=== PATIENT | male | born 1950 | race Hispanic/Latino ===

== ENCOUNTER 2017-03-15 01:49 | Inpatient (IN) | payer BC, MEDICARE ==
[2017-03-15 02:00] VITALS: BMI 22.8
[2017-03-15] MEDS ORDERED: Sodium Chloride 0.9% 1,000 ML IV STA ×2 (02:07→03:56)
--- NOTE | 2017-03-15 02:25 | ED PDOC ---
HPI: General Adult Time Seen by Provider: 03/15/17 01:59 Chief Complaint (Nursing): Flu-like Symptoms Chief Complaint (Provider): weakness History Per: Patient Onset/Duration Of Symptoms: Days (1) Current Symptoms Are (Timing): Still Present Additional History Per: Patient Additional Complaint(s): 66 y/o male with history HTN, DM, Osteoporosis, BPH, Spinal Compression Fracture, TURP, and Cholecystectomy, presenting after he states he became weak over the last day also describes a sense of fatigue. Complains that he felt unbalanced when ambulating to the bathroom this evening. Denies associated vomiting, diarrhea, cough, shortness of breath. States that he wasn' t aware of fever, however he has fever on arrival to the ED. Patient had TURP two weeks ago, and two months prior had cholecystectomy. Past Medical History Vital Signs: Last Vital Signs Temp 98.2 F 03/15/17 20:04 Pulse 79 03/15/17 20:04 Resp 18 03/15/17 20:04 BP 99/61 L 03/15/17 20:04 Pulse Ox 96 03/15/17 20:04 - Medical History PMH: Benign Prostatic Hyperplasia, Diabetes, HTN, Osteoporosis Other PMH: Spinal compression fracture - Surgical History Surgical History: Cholecystectomy (12/2016) Other surgeries: TURP - 02/2017 - Family History Family History: States: Unknown Family Hx - Social History Current smoker - smoking cessation education provided: No Ex-Smoker (has not smoked in the last 12 months): No Alcohol: None Drugs: Denies - Home Medications Home Medications: Ambulatory Orders Medication Instructions Recorded Calcitonin,[place],Synthetic 200 unit CELINA DAILY 03/15/17 [Miacalcin] Finasteride [Proscar] 5 mg PO DAILY 03/15/17 Losartan Potassium [Cozaar] 100 mg PO DAILY 03/15/17 Metformin HCl [Fortamet] 1,000 mg PO BID 03/15/17 Metoprolol Succinate 50 mg PO DAILY 03/15/17 Pantoprazole Sodium [Protonix] 40 mg PO DAILY 03/15/17 SITagliptin [Januvia] 100 mg PO DAILY 03/15/17 amLODIPine [Norvasc] 10 mg PO DAILY 03/15/17 - Allergies Allergies/Adverse Reactions: Allergies Allergy/AdvReac Type Severity Reaction Status Date / Time No Known Allergies Allergy Verified 03/15/17 01:59 Review of Systems ROS Statement: Except As Marked, All Systems Reviewed And Found Negative Constitutional: Positive for: Weakness Physical Exam - Reviewed Nursing Documentation Reviewed: Yes Vital Signs Reviewed: Yes - Physical Exam Appears: Positive for: Well, Non-toxic, No Acute Distress Head Exam: Positive for: ATRAUMATIC, NORMAL INSPECTION, NORMOCEPHALIC Skin: Positive for: Normal Color, Warm, DRY Eye Exam: Positive for: EOMI, Normal appearance, PERRL ENT: Positive for: Other (dry mucus membranes). Negative for: Normal ENT Inspection Neck: Positive for: Normal, Painless ROM Cardiovascular/Chest: Positive for: Tachycardia. Negative for: Regular Rate, Rhythm Respiratory: Positive for: CNT, Normal Breath Sounds Gastrointestinal/Abdominal: Positive for: Normal Exam, Bowel Sounds, Soft Back: Positive for: Normal Inspection Extremity: Positive for: Normal ROM Neurologic/Psych: Positive for: Alert, Oriented, Other (resting tremor (chronic) ) - Laboratory Results Result Diagrams: 03/15/17 02:57 03/15/17 02:57 - ECG ECG: Positive for: Interpreted By Me, Viewed By Ri ECG Rhythm: Positive for: Normal QRS, Sinus Tachycardia (107), Nonspecific Changes. Negative for: Normal ST Segment Interpretation Of Abn EK:55: Nonspecific ST abnormalities. Sinus tachycardia 107. O2 Sat by Pulse Oximetry: 95 (RA) Pulse Ox Interpretation: Normal - Radiology X-Ray: Interpreted by Me, Viewed By Ri X-Ray Interpretation: No Acute Disease Medical Decision Making Medical Decision Making: Impression: 66 y/o male with fever, and weakness in the setting of recent TURP. Patient is febrile (100.9F) and tachycardic. Plan: - Labs - CXR - Tylenol for fever - EKG WBC 19,000. LA 1.9. UA is positive. Patient given Rocephin and meets sepsis criteria. 04:19: Spoke with Dr. Tinsley, Hospitalist, who accepted admission. Scribe Attestation: Documented by Haylie Johnson, acting as a scribe for David Prajapati MD Provider Scribe Attestation: All medical record entries made by the Scribe were at my direction and personally dictated by me. I have reviewed the chart and agree that the record accurately reflects my personal performance of the history, physical exam, medical decision making, and the department course for this patient. I have also personally directed, reviewed, and agree with the discharge instructions and disposition. Disposition - Clinical Impression Clinical Impression: Sepsis, UTI (urinary tract infection) - Patient ED Disposition Is Patient to be Admitted: Yes Doctor Will See Patient In The: Hospital Counseled Patient/Family Regarding: Studies Performed, Diagnosis - Disposition Disposition Time: 04:22 Condition: FAIR - Pt Status Changed To: Hospital Disposition Of: Inpatient - Admit Certification Admit to Inpatient:: After my assessment, the patient will require hospitalization for at least two midnights. This is because of the severity of symptoms shown, intensity of services needed, and/or the medical risk in this patient being treated as an outpatient.
[2017-03-15 03:12] LABS: BASO # 0.1 K/uL (0.0-0.2); BASO % 0.4 % (0.0-2.0); EOS % 0.1 % (0.0-4.0); HEMATOCRIT 34.2 % (35.0-51.0); LYMPH # 0.8 K/uL (1.0-4.3); LYMPH % 4.2 % (20.0-40.0); MEAN CELL VOLUME 82.3 fl (80.0-94.0); MEAN CORPUSCULAR HEMOGLOBIN 27.1 pg (27.0-31.0); MEAN CORPUSCULAR HGB CONC 32.9 g/dL (33.0-37.0); MEAN PLATELET VOLUME 7.9 fl (7.2-11.7); MONO % 5.3 % (0.0-10.0); NEUT # 17.5 K/uL (1.8-7.0); PLATELET COUNT 227 K/uL (130-400); RED CELL DISTRIBUTION WIDTH 17.5 % (11.5-14.5); WHITE BLOOD COUNT 19.5 K/uL (4.8-10.8)
[2017-03-15 03:14] LABS: ALB/GLOB RATIO 1.3 (1.0-2.1); ALKALINE PHOSPHATASE 70 U/L (38-126); ALT/SGPT 31 U/L (21-72); AST/SGOT 13 U/L (17-59); BILIRUBIN,TOTAL 0.3 mg/dl (0.2-1.3); BLOOD UREA NITROGEN 19 mg/dl (9-20); CARBON DIOXIDE 19 mmol/L (22-30); CHLORIDE 106 mmol/L (98-107); GFR AFRICAN-AMERICAN > 60; GLUCOSE,RANDOM 230 mg/dL (75-110); POTASSIUM 4.2 MMOL/L (3.6-5.0); SODIUM 143 mmol/l (132-148); TOTAL PROTEIN 6.9 G/DL (6.3-8.2)
[2017-03-15 04:25] LABS: RBC URINE 320 /hpf (0-3); URINE BACTERIA RARE (<OCC); URINE BILIRUBIN NEGATIVE (NEGATIVE); URINE BLOOD LARGE (NEGATIVE); URINE COLOR YELLOW (YELLOW); URINE GLUCOSE (UA) NEG (Normal); URINE KETONE TRACE mg/dL (NEGATIVE); URINE LEUKOCYTE ESTERASE LARGE Leu/uL (Negative); URINE PROTEIN 100 mg/dL (NEGATIVE); URINE UROBILINOGEN 0.2-1.0 mg/dL (0.2-1.0); WBC URINE 272 /hpf (0-5)
--- NOTE | 2017-03-15 05:13 | CP.PCM.HP ---
History of Present Illness - History of Present Illness History of Present Illness: Chief complaint: [place] weak History of present illness: This is a 66-year-old male with a past medical history of hypertension, diabetes [id number], osteoporosis, GERD, BPH status post TURP 2 weeks ago, compression fracture, cholecystectomy 2 months ago, presents after approximately one day history of acute onset constant and worsening generalized fatigue and weakness. Patient states he felt unbalanced while ambulate into the bathroom this evening and has been experiencing mild urinary discomfort upon urination, some urgency, but without flank pain, CVA tenderness, denies hematuria, or malodorous urine. He denies any associated nausea, vomiting, constipation, diarrhea, chest pain, dyspnea, or subjective fevers. In the emergency room patient was found to be mildly tachycardic heart rate 125, temperature 100.9, BP 162/92, respiratory rate 16, 95% saturating on room air. Lactic acid was 1.9, WBC 19.5. An urinalysis was positive for both nitrites and leukocyte esterase. Patient was initiated on 2 mg of Rocephin. Blood and urine cultures pending. Review of systems per HPI all other systems reviewed and negative by me next Past medical and surgical history: Hypertension, diabetes, osteoporosis, GERD, BPH status post TURP 2 weeks ago (02/2017), compression fracture, cholecystectomy (12/2016) Family history: Denies Social history: Denies tobacco, alcohol, IV drug use Home medications as below No known drug allergies [facility] Vital signs as documented. Gen: WDWN, cooperative, alert, appears mildly pale HEENT: NCAT, PERRL, EOMI, no erythema, exudates, gross hearing intact, no lesions Neck: Soft, supple, no lymphadenopathy, no JVD Heart: +S1S2, RRR, No MRG Lung: CTAB, No WRR Abd: soft, NT, ND, BSx4, no HSM, no masses, no suprapubic tenderness Back: No CVA tenderness, no rashes appreciated, well aligned spine Ext: warm, well perfused, pedal pulses intact Neuro: AAOx3, Strength equal bilaterally UE/LE Skin: Warm, Dry, no rash Psych: Normal mood, affect with appropriate range Laboratory results Positive for WBC 19.5, lactic acid 1.9, urinalysis positive for nitrites and leukocyte esterase 03/15/17 02:57 03/15/17 02:57 Active medications Rocephin 1 mg IV PB daily Amlodipine 10 mg by mouth daily Finasteride 5 mg by mouth daily Cozaar 100 mg by mouth daily Metformin 1000 mg by mouth twice a day Toprol 50 mg by mouth daily Januvia 100 mg by mouth daily Protonix 40 mg by mouth daily per home meds Calcitonin nasal spray When necessary Zofran Lovenox for DVT prophylaxis Assessment and plan: This is a 66-year-old male with a past medical history of hypertension, diabetes [id number], GERD, osteoporosis, BPH status post TURP 2 weeks ago, compression fracture, cholecystectomy 2 months ago, presents after approximately one day history of acute onset constant and worsening generalized fatigue and weakness. Patient states he felt unbalanced while ambulate into the bathroom this evening and has been experiencing mild urinary discomfort upon urination, some urgency, but without flank pain, CVA tenderness, denies hematuria, or malodorous urine. He denies any associated nausea, vomiting, constipation, diarrhea, chest pain, dyspnea, or subjective fevers. In the emergency room patient was found to be mildly tachycardic heart rate 125, temperature 100.9, BP 162/92, respiratory rate 16, 95% saturating on room air. Lactic acid was 1.9, WBC 19.5. An urinalysis was positive for both nitrites and leukocyte esterase. Patient was initiated on 2 mg of Rocephin. Blood and urine cultures pending. Sepsis secondary to Urinary tract infection On admission patient presented with weakness and some urinary discomfort UA positive for nitrites and leukocyte esterase with WBC 19.5, temperature 100.9 heart rate 125 Blood and urine cultures pending Patient initiated on 2 g Rocephin in ER, continue 1 g IVPB daily Hypertension Continue amlodipine 10 mg by mouth daily, lovastatin 100 mg by mouth daily, Toprol 50 mg by mouth daily [id number] diabetes mellitus Stable Continue Januvia and metformin Accu-Cheks before meals and at bedtime Sliding scale insulin coverage low Heart healthy moderate carbohydrate diet Osteoporosis with compression fractures Continue calcitonin spray nasal GERD Continue Protonix VTE prophylaxis Lovenox Present on Admission - Present on Admission Any Indicators Present on Admission: No Past Patient History - Past Social History Alcohol: None Drugs: Denies - CARDIAC Hx Hypertension: Yes - ENDOCRINE/METABOLIC Hx Diabetes Mellitus Type 2: Yes - MUSCULOSKELETAL/RHEUMATOLOGICAL Hx Osteoporosis: Yes - PSYCHIATRIC Hx Substance Use: No - SURGICAL HISTORY Hx Cholecystectomy: Yes (12/2016) Meds Allergies/Adverse Reactions: Allergies Allergy/AdvReac Type Severity Reaction Status Date / Time No Known Allergies Allergy Verified 03/15/17 01:59 Results - Vital Signs Recent Vital Signs: Last Vital Signs Temp 100.9 F H 03/15/17 01:59 Pulse 125 H 03/15/17 01:59 Resp 16 03/15/17 01:59 BP 162/92 H 03/15/17 01:59 Pulse Ox 95 03/15/17 04:23 - Labs Result Diagrams: 03/15/17 02:57 03/15/17 02:57 Labs: Laboratory Results - last 24 hr 03/15/17 03/15/17 03/15/17 02:57 02:57 02:57 WBC 19.5 H RBC 4.16 L Hgb 11.3 L Hct 34.2 L MCV 82.3 MCH 27.1 MCHC 32.9 L RDW 17.5 H Plt Count 227 MPV 7.9 Neut % (Auto) 90.0 H Lymph % (Auto) 4.2 L [place] % (Auto) 5.3 Eos % (Auto) 0.1 Baso % (Auto) 0.4 Neut # 17.5 H Lymph # 0.8 L [place] # 1.0 H Eos # 0.0 Baso # 0.1 Sodium 143 Potassium 4.2 Chloride 106 Carbon Dioxide 19 L Anion Gap 22 H BUN 19 Creatinine 1.0 Est GFR ( Amer) > 60 Est GFR (Non-Af Amer) > 60 Random Glucose 230 H Lactic Acid 1.9 Calcium 9.0 Total Bilirubin 0.3 AST 13 L ALT 31 Alkaline Phosphatase 70 Total Protein 6.9 Albumin 3.9 Globulin 2.9 Albumin/Globulin Ratio 1.3 Urine Color Urine Clarity Urine pH Ur Specific [place] Urine Protein Urine Glucose (UA) Urine Ketones Urine Blood Urine Nitrate Urine Bilirubin Urine Urobilinogen Ur Leukocyte Esterase Urine RBC (Auto) Urine Microscopic WBC Ur Squamous Epith Cells Urine Bacteria Hyaline Casts Influenza Typ A,B (EIA) 03/15/17 03/15/17 02:57 04:13 WBC RBC Hgb Hct MCV MCH MCHC RDW Plt Count MPV Neut % (Auto) Lymph % (Auto) [place] % (Auto) Eos % (Auto) Baso % (Auto) Neut # Lymph # [place] # Eos # Baso # Sodium Potassium Chloride Carbon Dioxide Anion Gap BUN Creatinine Est GFR ( Amer) Est GFR (Non-Af Amer) Random Glucose Lactic Acid Calcium Total Bilirubin AST ALT Alkaline Phosphatase Total Protein Albumin Globulin Albumin/Globulin Ratio Urine Color Yellow Urine Clarity Cloudy Urine pH 5.0 Ur Specific [place] 1.017 Urine Protein 100 Urine Glucose (UA) Neg Urine Ketones Trace Urine Blood Large Urine Nitrate Positive H Urine Bilirubin Negative Urine Urobilinogen 0.2-1.0 Ur Leukocyte Esterase Large Urine RBC (Auto) 320 H Urine Microscopic WBC 272 H Ur Squamous Epith Cells 1 Urine Bacteria Rare Hyaline Casts 0-2 Influenza Typ A,B (EIA) Negative for flu a/b
[2017-03-15 05:19] LABS: NEUTROPHIL 92 % (42-75); TOTAL CELLS COUNTED 100
[2017-03-15] MEDS ORDERED: cefTRIAXone 2 GM in Sodium Chloride 0.9% 100 ML IVPB STA (05:52)
--- NOTE | 2017-03-15 08:23 | CARD ---
APPROVED REPORT EKG Measurement Heart [id number] <Conclusion> Sinus tachycardia Cannot rule out Anterior infarct, age undetermined Abnormal ECG
--- NOTE | 2017-03-15 08:51 | RAD ---
HISTORY: fever/weakness COMPARISON: No prior. FINDINGS: LUNGS: No active pulmonary disease. PLEURA: No significant pleural effusion identified, no pneumothorax apparent. CARDIOVASCULAR: Normal. OSSEOUS STRUCTURES: No significant abnormalities. VISUALIZED UPPER ABDOMEN: Normal. OTHER FINDINGS: None. IMPRESSION: No acute cardiopulmonary disease appreciated.
[2017-03-15] MEDS ORDERED: cefTRIAXone 2 GM in Sodium Chloride 0.9% 100 ML IVPB SCH (09:00)
[2017-03-15] MEDS ORDERED: METFORMIN HCL 1000 MG PO SCH (09:00)
[2017-03-15] MEDS ORDERED: CALCITONIN SALMON SYNTHETIC NAS SCH (09:00)
[2017-03-15] MEDS: Enoxaparin 40 mg Syringe SC SCH ×2 (09:55→09:59)
[2017-03-15] MEDS: Metoprolol Succinate 50 mg XL Tab PO SCH (10:00)
[2017-03-15] MEDS: Pantoprazole 40 mg EC Tab PO SCH (10:00)
[2017-03-15] MEDS: Sodium Chloride 0.9% 1,000 ML IV SCH ×2 (10:55→20:30)
[2017-03-15] MEDS: Calcitonin 200 Int Units/Inh Nasal Spray (3.7 ml) NAS SCH (16:20)
[2017-03-16 05:46] LABS: BASO % 0.3 % (0.0-2.0); EOS # 0.1 K/uL (0.0-0.7); EOS % 0.5 % (0.0-4.0); HEMATOCRIT 30.9 % (35.0-51.0); LYMPH # 2.5 K/uL (1.0-4.3); LYMPH % 17.1 % (20.0-40.0); MEAN CELL VOLUME 82.8 fl (80.0-94.0); MEAN CORPUSCULAR HEMOGLOBIN 27.4 pg (27.0-31.0); MEAN PLATELET VOLUME 8.1 fl (7.2-11.7); MONO # 1.4 K/uL (0.0-0.8); NEUT # 10.4 K/uL (1.8-7.0); NEUT % 72.1 % (50.0-75.0); RED CELL DISTRIBUTION WIDTH 17.5 % (11.5-14.5); WHITE BLOOD COUNT 14.4 K/uL (4.8-10.8)
[2017-03-16 06:19] LABS: BLOOD UREA NITROGEN 14 mg/dl (9-20); CHLORIDE 108 mmol/L (98-107); GFR AFRICAN-AMERICAN > 60; GLUCOSE,RANDOM 123 mg/dL (75-110); POTASSIUM 3.8 MMOL/L (3.6-5.0); SODIUM 143 mmol/l (132-148)
[2017-03-16 06:20] LABS: CALCIUM 8.8 mg/dL (8.4-10.2); CARBON DIOXIDE 24 mmol/L (22-30)
[2017-03-16] MEDS: Sodium Chloride 0.9% 1,000 ML IV SCH ×2 (06:47→22:05)
--- NOTE | 2017-03-16 07:40 | CP.PCM.PN ---
Subjective - Date & Time of Evaluation Date of Evaluation: 03/16/17 Time of Evaluation: 09:30 - Subjective Subjective: Patient seen and examined bedside. Lying in bed in NAD .Febrile Tmax 102 last 24 hours Bp 120/69 HR 79 Appears pale,weak, tired. complains of some pain to lower abdomen , suprapubic area. Able to urinate with no residual No acute issues overnight urine cx postive for gram negative karson Objective - Vital Signs/Intake and Output Vital Signs (last 24 hours): Temp Pulse Resp BP Pulse Ox 97.6 F 79 18 120/69 96 03/16/17 00:12 03/16/17 00:12 03/16/17 00:12 03/16/17 00:12 03/16/17 00:12 Intake and Output: 03/16/17 03/16/17 06:59 18:59 Output Total 150 Balance -150 - Medications Medications: Current Medications Acetaminophen (Tylenol 325mg Tab) 650 mg PO Q6 PRN PRN Reason: Fever >100.4 F Acetaminophen (Tylenol 325mg Tab) 650 mg PO Q4H PRN PRN Reason: Pain, Mild (1-3) Last Admin: 03/16/17 07:00 Dose: 650 mg Amlodipine Besylate (Norvasc) 10 mg PO DAILY [facility] Last Admin: 03/15/17 10:02 Dose: 10 mg Calcitonin [place] (Miacalcin) 200 iu CELINA DAILY [facility] Last Admin: 03/15/17 16:20 Dose: 1 spray Enoxaparin Sodium (Lovenox) 40 mg SC DAILY [facility] PRN Reason: Protocol Last Admin: 03/15/17 09:55 Dose: Not Given Finasteride (Proscar) 5 mg PO DAILY [facility] Last Admin: 03/15/17 10:00 Dose: 5 mg Ceftriaxone Sodium 1 gm/ (Sodium Chloride) 100 mls @ 100 mls/hr IVPB DAILY [facility] PRN Reason: Protocol Last Admin: 03/15/17 10:02 Dose: 100 mls/hr Sodium Chloride (Sodium Chloride 0.9%) 1,000 mls @ 100 mls/hr IV .Q10H [facility] Stop: 03/16/17 10:43 Last Admin: 03/16/17 06:47 Dose: 100 mls/hr Ibuprofen (Motrin Tab) 400 mg PO Q6 PRN PRN Reason: Fever >100.4 F Losartan Potassium (Cozaar) 100 mg PO DAILY [facility] Last Admin: 03/15/17 10:01 Dose: 100 mg Metformin HCl (Glucophage) 1,000 mg PO BID [facility] Last Admin: 03/15/17 16:19 Dose: 1,000 mg Metoprolol Succinate (Toprol Xl) 50 mg PO DAILY [facility] Last Admin: 03/15/17 10:00 Dose: 50 mg Ondansetron HCl (Zofran Inj) 4 mg IVP Q6 PRN PRN Reason: Nausea/Vomiting Pantoprazole Sodium (Protonix Ec Tab) 40 mg PO DAILY [facility] Last Admin: 03/15/17 10:00 Dose: 40 mg Sitagliptin Phosphate (Januvia) 100 mg PO DAILY [facility] Last Admin: 03/15/17 10:01 Dose: 100 mg - Labs Labs: 03/16/17 04:20 03/16/17 04:20 - Constitutional Appears: Older Than Stated Age, Cachectic, Chronically Ill, Other (pale) - Head Exam Head Exam: ATRAUMATIC, NORMOCEPHALIC - Eye Exam Eye Exam: EOMI, PERRL Pupil Exam: NORMAL ACCOMODATION - ENT Exam ENT Exam: Mucous Membranes Moist, Normal Exam - Neck Exam Neck Exam: Full ROM, Normal Inspection - Respiratory Exam Respiratory Exam: Clear to Ausculation Bilateral, NORMAL BREATHING PATTERN. absent: Rales, Rhonchi, Wheezes, Respiratory Distress - Cardiovascular Exam Cardiovascular Exam: REGULAR RHYTHM, RRR, +S1, +S2. absent: JVD - GI/Abdominal Exam GI & Abdominal Exam: Soft, Hernia (large inguinal and lower abdominal hernia ), Normal Bowel Sounds. absent: Distended, Guarding, Tenderness, Rebound - Rectal Exam Rectal Exam: Deferred - Exam Exam: Scrotal Swelling Additional comments: hydrocele - Extremities Exam Extremities Exam: Full ROM, Normal Capillary Refill, Normal Inspection. absent : Calf Tenderness, Pedal Edema - Back Exam Back Exam: NORMAL INSPECTION - Neurological Exam Neurological Exam: Alert, Awake, CN II-XII Intact, Oriented x3 - Psychiatric Exam Psychiatric exam: Normal Affect - Skin Skin Exam: Dry, Pallor, Warm Assessment and Plan - Assessment and Plan (Free Text) Assessment: 66-year-old male with a past medical history of hypertension, diabetes non- insulin-dependent, GERD, osteoporosis, BPH status post TURP 2 weeks ago, compression fracture, cholecystectomy 2 months ago, presents after approximately one day history of acute onset constant and worsening generalized fatigue and weakness. Patient states he felt unbalanced while ambulate into the bathroom this evening and has been experiencing mild urinary discomfort upon urination, some urgency, but without flank pain, CVA tenderness, denies hematuria, or malodorous urine. He denies any associated nausea, vomiting, constipation, diarrhea, chest pain, dyspnea, or subjective fevers. In the emergency room patient was found to be mildly tachycardic heart rate 125, temperature 100.9, BP 162/92, respiratory rate 16, 95% saturating on room air. Lactic acid was 1.9, WBC 19.5. An urinalysis was positive for both nitrites and leukocyte esterase. Patient was initiated on 2 mg of Rocephin. Blood and urine cultures pending. 1.Sepsis secondary to Urinary tract infection On admission patient presented with weakness and some urinary discomfort UA positive for nitrites and leukocyte esterase with WBC 19.5, temperature 100.9 heart rate 125 urine culture growing gram negative kasron follow up blood cultures continue rocephin 1 g Iv daily check HIV 2. s/p Recent TURP 3. Hydrocele and inguinal hernia Will order CT abdomen & pelvis urology eval 4.Hypertension controlled Continue amlodipine 10 mg by mouth daily, Toprol 50 mg by mouth daily 5. Mild anemia unclear etiology Monitor for now 6.Wix-yfkeyeq-xmukjehjp diabetes mellitus Stable Continue Januvia Hold metformin for 48 hours since contrast for CT will be given Accu-Cheks before meals and at bedtime Sliding scale insulin coverage low Heart healthy moderate carbohydrate diet 7.Osteoporosis with compression fractures Continue calcitonin spray nasal 8.GERD Continue Protonix VTE prophylaxis Lovenox
[2017-03-16] MEDS: Enoxaparin 40 mg Syringe SC SCH (08:44)
[2017-03-16] MEDS: Calcitonin 200 Int Units/Inh Nasal Spray (3.7 ml) NAS SCH (08:46)
[2017-03-16] MEDS: Pantoprazole 40 mg EC Tab PO SCH (08:47)
[2017-03-16] MEDS: Metoprolol Succinate 50 mg XL Tab PO SCH (08:47)
[2017-03-16] MEDS ORDERED: Iohexol 240 (50 ml) PO ONE (16:40)
[2017-03-16] MEDS ORDERED: Iohexol 300 100 ML IJ ONE (21:21)
[2017-03-16] MEDS ORDERED: Sodium Chloride 0.9% 50 ML IV ONE (21:21)
--- NOTE | 2017-03-16 23:17 | CT ---
EXAM: CT Abdomen and Pelvis With Intravenous Contrast CLINICAL HISTORY: 66 years old, male; Signs and symptoms; Other: Large hydrocele, inguinal hernia; Prior surgery; Surgery date: 1-6 months; Surgery type: Gb removed. Turp procedure, 2weeks ago; Additional info: Large hydrocele and inguinal hernia ? TECHNIQUE: Axial computed tomography images of the abdomen and pelvis with intravenous contrast. All CT scans at this facility use one or more dose reduction techniques, viz.: automated exposure control; ma/kV adjustment per patient size (including targeted exams where dose is matched to indication; i.e. head); or iterative reconstruction technique. Coronal and sagittal reformatted images were created and reviewed. CONTRAST: 90 mL of [id number] administered intravenously. COMPARISON: No relevant prior studies available. FINDINGS: Lower thorax: Left basilar consolidation, best detected on series 6, image 8. Left basilar atelectasis is also noted. ABDOMEN: Liver: No acute findings. Gallbladder and bile ducts: The gallbladder is surgically absent. No significant intra- or extrahepatic biliary ductal dilation. Pancreas: Enhances homogeneously. No ductal dilation. No discrete mass. Spleen: No acute findings. Adrenals: No acute findings. Kidneys and ureters: No acute findings. No hydronephrosis or renal calculi. No discrete solid mass. PELVIS: Bladder: No acute findings. Reproductive: This vesicles are markedly enlarged, as is the prostate gland, demonstrating mass effect on the patient's bladder, shifting it to the right of midline. Punctate foci of air and fluid are identified within the TURP defect (series 601, image 52), to the right of midline. Appendix: The appendix is not definitively visualized, however no pericecal inflammatory change is identified to suggest the presence of acute appendicitis. ABDOMEN and PELVIS: Stomach and bowel: A bowel containing nonobstructing left inguinal hernia is present. Peritoneum: No significant fluid collection. No free air. Lymph nodes: Minimally enlarged lymph nodes are identified within the pelvis. Vasculature: Calcified atherosclerotic disease. Bones: Compression of the vertebral body of L1 is identified, with sclerotic bony change. Compression of the superior endplate of T12 is also noted, along with endplate changes. Vacuum phenomenon is also noted. IMPRESSION: Punctate foci of air within the right base of the bladder, for which clinical correlation is needed. Postoperative change within the enlarged prostate gland. Enlargement of the seminal vesicles. Bowel containing nonobstructing left inguinal hernia. Left basilar consolidation.
[2017-03-17 06:29] LABS: HEMATOCRIT 29.8 % (35.0-51.0); MEAN CELL VOLUME 81.8 fl (80.0-94.0); MEAN CORPUSCULAR HEMOGLOBIN 27.5 pg (27.0-31.0); MEAN CORPUSCULAR HGB CONC 33.6 g/dL (33.0-37.0); RED CELL DISTRIBUTION WIDTH 17.4 % (11.5-14.5); WHITE BLOOD COUNT 8.9 K/uL (4.8-10.8)
[2017-03-17 06:38] LABS: BLOOD UREA NITROGEN 10 mg/dl (9-20); CALCIUM 8.6 mg/dL (8.4-10.2); CARBON DIOXIDE 21 mmol/L (22-30); CHLORIDE 110 mmol/L (98-107); GFR AFRICAN-AMERICAN > 60; GLUCOSE,RANDOM 123 mg/dL (75-110); POTASSIUM 3.3 MMOL/L (3.6-5.0); SODIUM 143 mmol/l (132-148)
--- NOTE | 2017-03-17 07:28 | CP.PCM.PN ---
Subjective - Date & Time of Evaluation Date of Evaluation: 03/17/17 Time of Evaluation: 07:26 - Subjective Subjective: consult in chart inp uti and left inguinal hernia. suggest iv meds till stable then cipro for 10 days once discharged Objective - Vital Signs/Intake and Output Vital Signs (last 24 hours): Temp Pulse Resp BP Pulse Ox 98.4 F 83 19 135/73 95 03/16/17 23:15 03/16/17 23:15 03/16/17 23:15 03/16/17 23:15 03/16/17 23:15 - Medications Medications: Current Medications Acetaminophen (Tylenol 325mg Tab) 650 mg PO Q6 PRN PRN Reason: Fever >100.4 F Acetaminophen (Tylenol 325mg Tab) 650 mg PO Q4H PRN PRN Reason: Pain, Mild (1-3) Last Admin: 03/17/17 02:19 Dose: 650 mg Amlodipine Besylate (Norvasc) 10 mg PO DAILY [facility] Last Admin: 03/16/17 08:46 Dose: 10 mg Calcitonin [place] (Miacalcin) 200 iu CELINA DAILY [facility] Last Admin: 03/16/17 08:46 Dose: 1 spray Enoxaparin Sodium (Lovenox) 40 mg SC DAILY [facility] PRN Reason: Protocol Last Admin: 03/16/17 08:44 Dose: Not Given Finasteride (Proscar) 5 mg PO DAILY [facility] Last Admin: 03/16/17 08:46 Dose: 5 mg Ceftriaxone Sodium 1 gm/ (Sodium Chloride) 100 mls @ 100 mls/hr IVPB DAILY [facility] PRN Reason: Protocol Last Admin: 03/16/17 08:42 Dose: 100 mls/hr Sodium Chloride (Sodium Chloride 0.9%) 1,000 mls @ 100 mls/hr IV .Q10H [facility] Stop: 03/17/17 20:49 Last Admin: 03/16/17 22:05 Dose: 100 mls/hr Ibuprofen (Motrin Tab) 400 mg PO Q6 PRN PRN Reason: Fever >100.4 F Losartan Potassium (Cozaar) 100 mg PO DAILY [facility] Last Admin: 03/16/17 08:43 Dose: 100 mg Metformin HCl (Glucophage) 1,000 mg PO BID [facility] Last Admin: 03/16/17 08:43 Dose: 1,000 mg Metoprolol Succinate (Toprol Xl) 50 mg PO DAILY [facility] Last Admin: 03/16/17 08:47 Dose: 50 mg Ondansetron HCl (Zofran Inj) 4 mg IVP Q6 PRN PRN Reason: Nausea/Vomiting Pantoprazole Sodium (Protonix Ec Tab) 40 mg PO DAILY [facility] Last Admin: 03/16/17 08:47 Dose: 40 mg Sitagliptin Phosphate (Januvia) 100 mg PO DAILY [facility] Last Admin: 03/16/17 08:43 Dose: 100 mg - Labs Labs: 03/17/17 05:45 03/17/17 05:45
[2017-03-17] MEDS ORDERED: Potassium Chloride 20 mEq ER Tab PO ONE (09:00)
[2017-03-17] MEDS: Sodium Chloride 0.9% 1,000 ML IV SCH ×2 (09:28→16:21)
[2017-03-17] MEDS: Enoxaparin 40 mg Syringe SC SCH (09:29)
[2017-03-17] MEDS: Pantoprazole 40 mg EC Tab PO SCH (09:30)
[2017-03-17] MEDS: Metoprolol Succinate 50 mg XL Tab PO SCH (09:31)
[2017-03-17] MEDS: Calcitonin 200 Int Units/Inh Nasal Spray (3.7 ml) NAS SCH (09:34)
[2017-03-17] MEDS: Meropenem 500 MG in Sodium Chloride 0.9% 100 ML IVPB SCH ×2 (12:53→16:14)
--- NOTE | 2017-03-17 13:01 | CON ---
DATE: 03/16/2017 HISTORY OF PRESENT ILLNESS: This is a 66-year-old gentleman, who I was seeing for evaluation of a potential left hydrocele. The patient has a urologic history including recent transurethral resection of the prostate in [facility] approximately 2 weeks ago. The patient postoperatively is voiding well. He denies any significant dysuria; however, when came in to the hospital he had a white blood cell count in his H and H of 19.5. BUN and creatinine were normal at 10 and 0.7. He was mildly hyperglycemic upon admission. Urinalysis showed the presence of significant amount of white blood cells as well as positive nitrites in the urine. Consequently, the patient then was placed on IV antibiotics for coverage for potential urinary tract infection. In reference to the reason for the consult of the left hydrocele, the patient has had this left bulge for years and reasonably well documented that this is a left inguinal hernia. He is getting a CT scan of this area to confirm the presence of the hernia, but this in fact does not feel like a hydrocele at this time and should be addressed more by the general surgeons if the patient wishes. At this time, the patient feels that this bulge is chronic and I am not sure that he is interested at this time for any surgical repair. RECOMMENDATIONS: From the urologic standpoint, I think he should just be controlled with intravenous antibiotics. When the white blood cell count normalizes, at that point he can be converted to an oral antibiotic. If the culture comes back in time to be selective then fine, otherwise I would probably recommend Cipro 500 mg p.o. b.i.d. to be taken for a period of 10 days after again the white blood cell count normalizes. Deonna Keyes MD
--- NOTE | 2017-03-17 13:23 | CP.PCM.PN ---
Subjective - Date & Time of Evaluation Date of Evaluation: 03/17/17 Time of Evaluation: 12:00 - Subjective Subjective: No fever this am, afebrile since 4 pm yesterday leukocytosis resolving feels better no CP no SOB no abd pain weakness better poor appetite had diarrhea this am Objective - Vital Signs/Intake and Output Vital Signs (last 24 hours): Temp Pulse Resp BP Pulse Ox 97.9 F 82 20 145/76 96 03/17/17 08:44 03/17/17 08:44 03/17/17 08:44 03/17/17 08:44 03/17/17 08:44 - Medications Medications: Current Medications Acetaminophen (Tylenol 325mg Tab) 650 mg PO Q6 PRN PRN Reason: Fever >100.4 F Acetaminophen (Tylenol 325mg Tab) 650 mg PO Q4H PRN PRN Reason: Pain, Mild (1-3) Last Admin: 03/17/17 10:38 Dose: 650 mg Amlodipine Besylate (Norvasc) 10 mg PO DAILY [facility] Last Admin: 03/17/17 09:31 Dose: 10 mg Calcitonin [place] (Miacalcin) 200 iu CELINA DAILY [facility] Last Admin: 03/17/17 09:34 Dose: 1 spray Enoxaparin Sodium (Lovenox) 40 mg SC DAILY [facility] PRN Reason: Protocol Last Admin: 03/17/17 09:29 Dose: 40 mg Finasteride (Proscar) 5 mg PO DAILY [facility] Last Admin: 03/17/17 09:31 Dose: 5 mg Sodium Chloride (Sodium Chloride 0.9%) 1,000 mls @ 100 mls/hr IV .Q10H [facility] Stop: 03/17/17 20:49 Last Admin: 03/17/17 09:28 Dose: 100 mls/hr Meropenem 500 mg/ Sodium (Chloride) 100 mls @ 100 mls/hr IVPB Q8 [facility] PRN Reason: Protocol Last Admin: 03/17/17 12:53 Dose: 100 mls/hr Ibuprofen (Motrin Tab) 400 mg PO Q6 PRN PRN Reason: Fever >100.4 F Losartan Potassium (Cozaar) 100 mg PO DAILY [facility] Last Admin: 03/17/17 09:32 Dose: 100 mg Metformin HCl (Glucophage) 1,000 mg PO BID [facility] Last Admin: 03/16/17 08:43 Dose: 1,000 mg Metoprolol Succinate (Toprol Xl) 50 mg PO DAILY [facility] Last Admin: 03/17/17 09:31 Dose: 50 mg Ondansetron HCl (Zofran Inj) 4 mg IVP Q6 PRN PRN Reason: Nausea/Vomiting Pantoprazole Sodium (Protonix Ec Tab) 40 mg PO DAILY [facility] Last Admin: 03/17/17 09:30 Dose: 40 mg Sitagliptin Phosphate (Januvia) 100 mg PO DAILY [facility] Last Admin: 03/17/17 09:31 Dose: 100 mg - Labs Labs: 03/17/17 05:45 03/17/17 05:45 - Constitutional Appears: Non-toxic, No Acute Distress, Chronically Ill - Head Exam Head Exam: NORMAL INSPECTION, NORMOCEPHALIC - Eye Exam Eye Exam: EOMI, Normal appearance, PERRL Pupil Exam: NORMAL ACCOMODATION - ENT Exam ENT Exam: Mucous Membranes Moist, Normal External Ear Exam - Neck Exam Neck Exam: Full ROM. absent: Meningismus - Respiratory Exam Respiratory Exam: NORMAL BREATHING PATTERN. absent: Respiratory Distress - Cardiovascular Exam Cardiovascular Exam: REGULAR RHYTHM, +S1, +S2 - GI/Abdominal Exam GI & Abdominal Exam: Soft, Normal Bowel Sounds. absent: Tenderness - Extremities Exam Extremities Exam: Full ROM, Normal Capillary Refill. absent: Calf Tenderness - Back Exam Back Exam: Full ROM. absent: CVA tenderness (L) - Neurological Exam Neurological Exam: Alert, Awake, CN II-XII Intact, Oriented x3 Neuro motor strength exam: Left Upper Extremity: 5, Right Upper Extremity: 5, Left Lower Extremity: 5, Right Lower Extremity: 5 - Psychiatric Exam Psychiatric exam: Normal Affect, Normal Mood - Skin Skin Exam: Dry, Normal Color, Warm Assessment and Plan - Assessment and Plan (Free Text) Assessment: 66-year-old male with a past medical history of hypertension, diabetes non- insulin-dependent, GERD, osteoporosis, BPH status post TURP 2 weeks ago, compression fracture, cholecystectomy 2 months ago, presents after approximately one day history of acute onset constant and worsening generalized fatigue and weakness. Patient states he felt very weak and has been experiencing mild urinary discomfort upon urination, some urgency, but without flank pain, CVA tenderness, denies hematuria, or malodorous urine. He denies any associated nausea, vomiting, constipation, diarrhea, chest pain, dyspnea, or subjective fevers. In the emergency room patient was found to be mildly tachycardic heart rate 125, temperature 100.9, BP 162/92, respiratory rate 16, 95% saturating on room air. Lactic acid was 1.9, WBC 19.5. A urinalysis was positive for both nitrites and leukocyte esterase. Patient was initiated on 2 mg of Rocephin. Blood and urine cultures showed ESBL Klebsiella and abx was changed to Meropenema 1.Sepsis secondary to Urinary tract infection On admission patient presented with weakness and some urinary discomfort UA positive for nitrites and leukocyte esterase with WBC 19.5, temperature 100.9 heart rate 125 urine culture : ESBL Klebsiella Change Abx to IV Meropenem , would likely need 10 day of IV antibiotics ID consult : DR Andrea 2. s/p Recent TURP 3. Hydrocele and inguinal hernia CT abdomen & pelvis: Inguinal hernia urology eval- discussed case with Dr Keyes : no urologic intervention 4.Hypertension controlled Continue amlodipine 10 mg by mouth daily, Toprol 50 mg by mouth daily 5. Mild anemia unclear etiology Monitor for now 6.Hyu-hwsknon-sxswyqaed diabetes mellitus Stable Continue Januvia Hold metformin for 48 hours since contrast for CT given Accu-Cheks before meals and at bedtime Sliding scale insulin coverage low Heart healthy moderate carbohydrate diet 7.Osteoporosis with compression fractures Continue calcitonin spray nasal 8.GERD Continue Protonix 9. Soft BM this am - check for C diff 10. Hypokalemia likely sec to poor PO intake Replace with KCl VTE prophylaxis Lovenox
[2017-03-17] MEDS: Lactobacillus Acidophilus 500 MU Cap PO SCH (16:11)
--- NOTE | 2017-03-17 16:50 | CP.PCM.PN ---
Subjective - Date & Time of Evaluation Date of Evaluation: 03/17/17 Time of Evaluation: 17:51 - Subjective Subjective: I D NOTE DISCUSSED C PATIENT C ESBL KLEBSIELLA THAT IAS ESSENTIALLY MDR IS SENSITIVE TO CARBAPENEMS AND AMINOGLYCOSIDES(2 CLASSES OF ANTIBIOTICS) AGREE C MEROPENEM Objective - Vital Signs/Intake and Output Vital Signs (last 24 hours): Temp Pulse Resp BP Pulse Ox 98.4 F 68 20 129/74 96 03/17/17 16:44 03/17/17 16:44 03/17/17 16:44 03/17/17 16:44 03/17/17 16:44 - Medications Medications: Current Medications Acetaminophen (Tylenol 325mg Tab) 650 mg PO Q6 PRN PRN Reason: Fever >100.4 F Acetaminophen (Tylenol 325mg Tab) 650 mg PO Q4H PRN PRN Reason: Pain, Mild (1-3) Last Admin: 03/17/17 10:38 Dose: 650 mg Amlodipine Besylate (Norvasc) 10 mg PO DAILY [facility] Last Admin: 03/17/17 09:31 Dose: 10 mg Calcitonin [place] (Miacalcin) 200 iu CELINA DAILY [facility] Last Admin: 03/17/17 09:34 Dose: 1 spray Enoxaparin Sodium (Lovenox) 40 mg SC DAILY [facility] PRN Reason: Protocol Last Admin: 03/17/17 09:29 Dose: 40 mg Finasteride (Proscar) 5 mg PO DAILY [facility] Last Admin: 03/17/17 09:31 Dose: 5 mg Sodium Chloride (Sodium Chloride 0.9%) 1,000 mls @ 100 mls/hr IV .Q10H [facility] Stop: 03/17/17 20:49 Last Admin: 03/17/17 16:21 Dose: 100 mls/hr Meropenem 500 mg/ Sodium (Chloride) 100 mls @ 100 mls/hr IVPB Q8 [facility] PRN Reason: Protocol Last Admin: 03/17/17 16:14 Dose: 100 mls/hr Ibuprofen (Motrin Tab) 400 mg PO Q6 PRN PRN Reason: Fever >100.4 F Lactobacillus Acidophilus (Bacid Acidophilus) 1 cap PO BID [facility] Last Admin: 03/17/17 16:11 Dose: 1 cap Losartan Potassium (Cozaar) 100 mg PO DAILY [facility] Last Admin: 03/17/17 09:32 Dose: 100 mg Metformin HCl (Glucophage) 1,000 mg PO BID [facility] Last Admin: 03/16/17 08:43 Dose: 1,000 mg Metoprolol Succinate (Toprol Xl) 50 mg PO DAILY [facility] Last Admin: 03/17/17 09:31 Dose: 50 mg Ondansetron HCl (Zofran Inj) 4 mg IVP Q6 PRN PRN Reason: Nausea/Vomiting Pantoprazole Sodium (Protonix Ec Tab) 40 mg PO DAILY [facility] Last Admin: 03/17/17 09:30 Dose: 40 mg Sitagliptin Phosphate (Januvia) 100 mg PO DAILY [facility] Last Admin: 03/17/17 09:31 Dose: 100 mg - Labs Labs: 03/17/17 05:45 03/17/17 05:45
[2017-03-18] MEDS: Meropenem 500 MG in Sodium Chloride 0.9% 100 ML IVPB SCH ×3 (00:45→16:06)
[2017-03-18] MEDS: Sodium Chloride 0.9% 1,000 ML IV SCH ×2 (04:53→22:01)
[2017-03-18 06:23] LABS: HEMATOCRIT 32.2 % (35.0-51.0); MEAN CELL VOLUME 82.7 fl (80.0-94.0); MEAN CORPUSCULAR HEMOGLOBIN 26.8 pg (27.0-31.0); MEAN CORPUSCULAR HGB CONC 32.4 g/dL (33.0-37.0); RED CELL DISTRIBUTION WIDTH 17.9 % (11.5-14.5); WHITE BLOOD COUNT 8.5 K/uL (4.8-10.8)
[2017-03-18 06:41] LABS: BLOOD UREA NITROGEN 10 mg/dl (9-20); CALCIUM 8.6 mg/dL (8.4-10.2); CARBON DIOXIDE 24 mmol/L (22-30); CHLORIDE 110 mmol/L (98-107); GFR AFRICAN-AMERICAN > 60; GLUCOSE,RANDOM 129 mg/dL (75-110); POTASSIUM 3.8 MMOL/L (3.6-5.0); SODIUM 145 mmol/l (132-148)
[2017-03-18] MEDS: Lactobacillus Acidophilus 500 MU Cap PO SCH ×2 (08:34→16:06)
[2017-03-18] MEDS: Pantoprazole 40 mg EC Tab PO SCH (08:35)
[2017-03-18] MEDS: Enoxaparin 40 mg Syringe SC SCH (08:35)
[2017-03-18] MEDS: Metoprolol Succinate 50 mg XL Tab PO SCH (08:35)
[2017-03-18] MEDS: Calcitonin 200 Int Units/Inh Nasal Spray (3.7 ml) NAS SCH (08:36)
--- NOTE | 2017-03-18 11:43 | CP.PCM.PN ---
Subjective - Date & Time of Evaluation Date of Evaluation: 03/18/17 Time of Evaluation: 10:30 - Subjective Subjective: No fever feels weak but better Stool C diff came back + denies CP no SOB no abd pain no pain on his hernia diarrhea better Objective - Vital Signs/Intake and Output Vital Signs (last 24 hours): Temp Pulse Resp BP Pulse Ox 98.6 F 89 20 142/78 97 03/18/17 08:15 03/18/17 08:35 03/18/17 08:15 03/18/17 08:35 03/18/17 08:15 Intake and Output: 03/18/17 03/18/17 06:59 18:59 Intake Total 1540 Balance 1540 - Medications Medications: Current Medications Acetaminophen (Tylenol 325mg Tab) 650 mg PO Q6 PRN PRN Reason: Fever >100.4 F Acetaminophen (Tylenol 325mg Tab) 650 mg PO Q4H PRN PRN Reason: Pain, Mild (1-3) Last Admin: 03/18/17 08:48 Dose: 650 mg Amlodipine Besylate (Norvasc) 10 mg PO DAILY [facility] Last Admin: 03/18/17 08:34 Dose: 10 mg Calcitonin [place] (Miacalcin) 200 iu CELINA DAILY [facility] Last Admin: 03/18/17 08:36 Dose: 1 spray Enoxaparin Sodium (Lovenox) 40 mg SC DAILY [facility] PRN Reason: Protocol Last Admin: 03/18/17 08:35 Dose: 40 mg Finasteride (Proscar) 5 mg PO DAILY [facility] Last Admin: 03/18/17 08:35 Dose: 5 mg Meropenem 500 mg/ Sodium (Chloride) 100 mls @ 100 mls/hr IVPB Q8 [facility] PRN Reason: Protocol Last Admin: 03/18/17 08:36 Dose: 100 mls/hr Sodium Chloride (Sodium Chloride 0.9%) 1,000 mls @ 100 mls/hr IV .Q10H [facility] Stop: 03/19/17 04:05 Last Admin: 03/18/17 04:53 Dose: Not Given Ibuprofen (Motrin Tab) 400 mg PO Q6 PRN PRN Reason: Fever >100.4 F Lactobacillus Acidophilus (Bacid Acidophilus) 1 cap PO BID [facility] Last Admin: 03/18/17 08:34 Dose: 1 cap Losartan Potassium (Cozaar) 100 mg PO DAILY [facility] Last Admin: 03/18/17 08:34 Dose: 100 mg Metformin HCl (Glucophage) 1,000 mg PO BID [facility] Last Admin: 03/16/17 08:43 Dose: 1,000 mg Metoprolol Succinate (Toprol Xl) 50 mg PO DAILY [facility] Last Admin: 03/18/17 08:35 Dose: 50 mg Metronidazole (Flagyl) 500 mg PO Q8 [facility] PRN Reason: Protocol Last Admin: 03/18/17 11:09 Dose: 500 mg Ondansetron HCl (Zofran Inj) 4 mg IVP Q6 PRN PRN Reason: Nausea/Vomiting Sitagliptin Phosphate (Januvia) 100 mg PO DAILY [facility] Last Admin: 03/18/17 08:35 Dose: 100 mg Tramadol HCl (Ultram) 50 mg PO Q6 PRN PRN Reason: Pain, moderate (4-7) - Labs Labs: 03/18/17 06:05 03/18/17 06:05 - Constitutional Appears: Non-toxic, No Acute Distress, Chronically Ill - Head Exam Head Exam: NORMAL INSPECTION, NORMOCEPHALIC - Eye Exam Eye Exam: EOMI, Normal appearance, PERRL Pupil Exam: NORMAL ACCOMODATION - ENT Exam ENT Exam: Mucous Membranes Moist, Normal External Ear Exam - Neck Exam Neck Exam: Full ROM. absent: Meningismus - Respiratory Exam Respiratory Exam: NORMAL BREATHING PATTERN. absent: Respiratory Distress - Cardiovascular Exam Cardiovascular Exam: REGULAR RHYTHM, +S1, +S2 - GI/Abdominal Exam GI & Abdominal Exam: Soft, Normal Bowel Sounds. absent: Tenderness Left inguinal hernia, nontender, reducible - Extremities Exam Extremities Exam: Full ROM, Normal Capillary Refill. absent: Calf Tenderness - Back Exam Back Exam: Full ROM. absent: CVA tenderness (L) - Neurological Exam Neurological Exam: Alert, Awake, CN II-XII Intact, Oriented x3 Neuro motor strength exam: Left Upper Extremity: 5, Right Upper Extremity: 5, Left Lower Extremity: 5, Right Lower Extremity: 5 - Psychiatric Exam Psychiatric exam: Normal Affect, Normal Mood - Skin Skin Exam: Dry, Normal Color, Warm Assessment and Plan - Assessment and Plan (Free Text) Assessment: 66-year-old male with a past medical history of hypertension, diabetes non- insulin-dependent, GERD, osteoporosis, BPH status post TURP 2 weeks ago, compression fracture, cholecystectomy 2 months ago, presents after approximately one day history of acute onset constant and worsening generalized fatigue and weakness. Patient states he felt very weak and has been experiencing mild urinary discomfort upon urination, some urgency, but without flank pain, CVA tenderness, denies hematuria, or malodorous urine. He denies any associated nausea, vomiting, constipation, diarrhea, chest pain, dyspnea, or subjective fevers. In the emergency room patient was found to be mildly tachycardic heart rate 125, temperature 100.9, BP 162/92, respiratory rate 16, 95% saturating on room air. Lactic acid was 1.9, WBC 19.5. A urinalysis was positive for both nitrites and leukocyte esterase. Patient was initiated on 2 mg of Rocephin. Blood and urine cultures showed ESBL Klebsiella and abx was changed to Meropenem. Stool C diff came back + 1.Sepsis secondary to Urinary tract infection On admission patient presented with weakness and some urinary discomfort UA positive for nitrites and leukocyte esterase with WBC 19.5, temperature 100.9 heart rate 125 urine culture : ESBL Klebsiella Change Abx to IV Meropenem , would likely need 10 day of IV antibiotics ID consult : DR Andrea will d/c pt to TCU in am for IV abx 2. C Diff Antigen + Diarrhea - Stool C diff + Ag but neg Toin Pt has diarrhea will start PO Flagyl 3. Hydrocele and inguinal hernia CT abdomen & pelvis: Inguinal hernia urology eval- discussed case with Dr Keyes : no urologic intervention Hernia reducible, not strangulated 4.Hypertension controlled Continue amlodipine 10 mg by mouth daily, Toprol 50 mg by mouth daily 5. Mild anemia , chronic pt had multiple recent surgeries done in [facility] ( TURP and [facility] [place]) Monitor for now 6.Fdb-omvpynx-ysimknedg diabetes mellitus Stable Continue Januvia Held metformin for 48 hours since contrast for CT given Accu-Cheks before meals and at bedtime Sliding scale insulin coverage low Heart healthy moderate carbohydrate diet 7.Osteoporosis with compression fractures Continue calcitonin spray nasal 8.GERD Continue Protonix 9. Soft BM this am - check for C diff 10. Hypokalemia likely sec to poor PO intake Replace with KCl 11. Prostatic Enlargement s/p Recent TURP cont Finasteride VTE prophylaxis Lovenox
--- NOTE | 2017-03-18 18:53 | CP.PCM.PN ---
Subjective - Date & Time of Evaluation Date of Evaluation: 03/18/17 Time of Evaluation: 18:47 - Subjective Subjective: I D NOTE HAS DIARRHEA,C.DIFF ON PO FLAGYL FOR PRESENT ,CONINUE MEROPENEM Objective - Vital Signs/Intake and Output Vital Signs (last 24 hours): Temp Pulse Resp BP Pulse Ox 98.4 F 98 H 20 100/56 L 100 03/18/17 17:00 03/18/17 16:18 03/18/17 16:18 03/18/17 16:18 03/18/17 16:18 Intake and Output: 03/18/17 03/18/17 06:59 18:59 Intake Total 1540 Balance 1540 - Medications Medications: Current Medications Acetaminophen (Tylenol 325mg Tab) 650 mg PO Q6 PRN PRN Reason: Fever >100.4 F Acetaminophen (Tylenol 325mg Tab) 650 mg PO Q4H PRN PRN Reason: Pain, Mild (1-3) Last Admin: 03/18/17 16:05 Dose: 650 mg Amlodipine Besylate (Norvasc) 10 mg PO DAILY [facility] Last Admin: 03/18/17 08:34 Dose: 10 mg Calcitonin [place] (Miacalcin) 200 iu CELINA DAILY [facility] Last Admin: 03/18/17 08:36 Dose: 1 spray Enoxaparin Sodium (Lovenox) 40 mg SC DAILY [facility] PRN Reason: Protocol Last Admin: 03/18/17 08:35 Dose: 40 mg Finasteride (Proscar) 5 mg PO DAILY [facility] Last Admin: 03/18/17 08:35 Dose: 5 mg Meropenem 500 mg/ Sodium (Chloride) 100 mls @ 100 mls/hr IVPB Q8 [facility] PRN Reason: Protocol Last Admin: 03/18/17 16:06 Dose: 100 mls/hr Sodium Chloride (Sodium Chloride 0.9%) 1,000 mls @ 100 mls/hr IV .Q10H [facility] Stop: 03/19/17 04:05 Last Admin: 03/18/17 04:53 Dose: Not Given Ibuprofen (Motrin Tab) 400 mg PO Q6 PRN PRN Reason: Fever >100.4 F Lactobacillus Acidophilus (Bacid Acidophilus) 1 cap PO BID [facility] Last Admin: 03/18/17 16:06 Dose: 1 cap Losartan Potassium (Cozaar) 100 mg PO DAILY [facility] Last Admin: 03/18/17 08:34 Dose: 100 mg Metformin HCl (Glucophage) 1,000 mg PO BID [facility] Last Admin: 03/16/17 08:43 Dose: 1,000 mg Metoprolol Succinate (Toprol Xl) 50 mg PO DAILY [facility] Last Admin: 03/18/17 08:35 Dose: 50 mg Metronidazole (Flagyl) 500 mg PO Q8 [facility] PRN Reason: Protocol Last Admin: 03/18/17 16:06 Dose: 500 mg Ondansetron HCl (Zofran Inj) 4 mg IVP Q6 PRN PRN Reason: Nausea/Vomiting Sitagliptin Phosphate (Januvia) 100 mg PO DAILY [facility] Last Admin: 03/18/17 08:35 Dose: 100 mg Tramadol HCl (Ultram) 50 mg PO Q6 PRN PRN Reason: Pain, moderate (4-7) - Labs Labs: 03/18/17 06:05 03/18/17 06:05
[2017-03-19] MEDS: Sodium Chloride 0.9% 1,000 ML IV SCH (01:12)
[2017-03-19] MEDS: Meropenem 500 MG in Sodium Chloride 0.9% 100 ML IVPB SCH ×3 (01:14→17:35)
[2017-03-19] MEDS: Metoprolol Succinate 50 mg XL Tab PO SCH (08:55)
[2017-03-19] MEDS: Lactobacillus Acidophilus 500 MU Cap PO SCH ×2 (08:55→17:34)
[2017-03-19] MEDS: Enoxaparin 40 mg Syringe SC SCH (08:56)
[2017-03-19] MEDS: Calcitonin 200 Int Units/Inh Nasal Spray (3.7 ml) NAS SCH (08:57)
--- NOTE | 2017-03-19 17:46 | CP.PCM.PN ---
Subjective - Date & Time of Evaluation Date of Evaluation: 03/19/17 Time of Evaluation: 08:30 - Subjective Subjective: Patient was seen and examined bedside.Hemodynamically stable, afebrile. Denies any pain or discomfort . on IV meropenem for ESBl in urine denied by insurance company for TCU admission. Objective - Vital Signs/Intake and Output Vital Signs (last 24 hours): Temp Pulse Resp BP Pulse Ox 97.7 F 68 18 123/66 95 03/19/17 16:18 03/19/17 16:18 03/19/17 16:18 03/19/17 16:18 03/19/17 16:18 - Medications Medications: Current Medications Acetaminophen (Tylenol 325mg Tab) 650 mg PO Q6 PRN PRN Reason: Fever >100.4 F Acetaminophen (Tylenol 325mg Tab) 650 mg PO Q4H PRN PRN Reason: Pain, Mild (1-3) Last Admin: 03/19/17 11:31 Dose: 650 mg Amlodipine Besylate (Norvasc) 10 mg PO DAILY [facility] Last Admin: 03/19/17 08:55 Dose: 10 mg Calcitonin [place] (Miacalcin) 200 iu CELINA DAILY [facility] Last Admin: 03/19/17 08:57 Dose: 1 spray Enoxaparin Sodium (Lovenox) 40 mg SC DAILY [facility] PRN Reason: Protocol Last Admin: 03/19/17 08:56 Dose: 40 mg Finasteride (Proscar) 5 mg PO DAILY [facility] Last Admin: 03/19/17 08:56 Dose: 5 mg Meropenem 500 mg/ Sodium (Chloride) 100 mls @ 100 mls/hr IVPB Q8 [facility] PRN Reason: Protocol Last Admin: 03/19/17 17:35 Dose: 100 mls/hr Ibuprofen (Motrin Tab) 400 mg PO Q6 PRN PRN Reason: Fever >100.4 F Lactobacillus Acidophilus (Bacid Acidophilus) 1 cap PO BID [facility] Last Admin: 03/19/17 17:34 Dose: 1 cap Losartan Potassium (Cozaar) 100 mg PO DAILY [facility] Last Admin: 03/19/17 08:56 Dose: 100 mg Metformin HCl (Glucophage) 1,000 mg PO BID [facility] Last Admin: 03/19/17 17:35 Dose: 1,000 mg Metoprolol Succinate (Toprol Xl) 50 mg PO DAILY [facility] Last Admin: 03/19/17 08:55 Dose: 50 mg Metronidazole (Flagyl) 500 mg PO Q8 [facility] PRN Reason: Protocol Last Admin: 03/19/17 17:35 Dose: 500 mg Ondansetron HCl (Zofran Inj) 4 mg IVP Q6 PRN PRN Reason: Nausea/Vomiting Sitagliptin Phosphate (Januvia) 100 mg PO DAILY [facility] Last Admin: 03/19/17 08:56 Dose: 100 mg Tramadol HCl (Ultram) 50 mg PO Q6 PRN PRN Reason: Pain, moderate (4-7) - Labs Labs: 03/18/17 06:05 03/18/17 06:05 - Constitutional Appears: Non-toxic, No Acute Distress, Older Than Stated Age, Cachectic, Chronically Ill - Head Exam Head Exam: ATRAUMATIC, NORMOCEPHALIC - Eye Exam Eye Exam: EOMI, PERRL Pupil Exam: NORMAL ACCOMODATION - ENT Exam ENT Exam: Mucous Membranes Moist, Normal Exam - Neck Exam Neck Exam: Full ROM, Normal Inspection - Respiratory Exam Respiratory Exam: Clear to Ausculation Bilateral, NORMAL BREATHING PATTERN. absent: Rales, Rhonchi, Wheezes, Respiratory Distress - Cardiovascular Exam Cardiovascular Exam: REGULAR RHYTHM, RRR, +S1, +S2. absent: JVD - GI/Abdominal Exam GI & Abdominal Exam: Soft, Normal Bowel Sounds. absent: Distended, Guarding, Tenderness, Rebound - Rectal Exam Rectal Exam: Deferred - Exam Additional comments: left inguinal hernia, not tender - Extremities Exam Extremities Exam: Full ROM, Normal Capillary Refill, Normal Inspection. absent : Pedal Edema - Back Exam Back Exam: NORMAL INSPECTION - Neurological Exam Neurological Exam: Alert, Awake, Oriented x3 - Psychiatric Exam Psychiatric exam: Flat Affect - Skin Skin Exam: Dry, Pallor, Warm Assessment and Plan - Assessment and Plan (Free Text) Assessment: 66-year-old male with a past medical history of hypertension, diabetes non- insulin-dependent, GERD, osteoporosis, BPH status post TURP 2 weeks ago, compression fracture, cholecystectomy 2 months ago, presented after approximately one day history of acute onset constant and worsening generalized fatigue and weakness. Patient states he felt very weak and has been experiencing mild urinary discomfort upon urination, some urgency, but without flank pain, CVA tenderness, denies hematuria, or malodorous urine. He denies any associated nausea, vomiting, constipation, diarrhea, chest pain, dyspnea, or subjective fevers. In the emergency room patient was found to be mildly tachycardic heart rate 125, temperature 100.9, BP 162/92, respiratory rate 16, 95% saturating on room air. Lactic acid was 1.9, WBC 19.5. A urinalysis was positive for both nitrites and leukocyte esterase. Patient was initiated on 2 mg of Rocephin. Blood and urine cultures showed ESBL Klebsiella and abx was changed to Meropenem. Stool C diff Ag came back + 1.Sepsis secondary to Urinary tract infection On admission patient presented with weakness and some urinary discomfort UA positive for nitrites and leukocyte esterase with WBC 19.5, temperature 100.9 heart rate 125 urine culture : ESBL Klebsiella Changed Abx to IV Meropenem 03/17 , Would likely need 10 day of IV antibiotics ID consult : DR Andrea plan was to d/c patient to TCu for continuation of Iv antibiotics but refused by insurance company Continue IV antibiotics in house 2. C Diff Antigen + Diarrhea Stool C diff + Ag but neg Toxin Pt had diarrhea so was started on PO Flagyl 3. Hydrocele and inguinal hernia CT abdomen & pelvis: Inguinal hernia urology eval- discussed case with Dr Keyes : no urologic intervention Hernia reducible, not strangulated 4.Hypertension controlled Continue amlodipine 10 mg by mouth daily, Toprol 50 mg by mouth daily 5. Mild anemia , chronic pt had multiple recent surgeries done in [facility] ( TURP and [place]) Monitor for now 6.Kbp-baiazor-ifhefzbgs diabetes mellitus Stable Continue Januvia Held metformin for 48 hours since contrast for CT given Accu-Cheks before meals and at bedtime Sliding scale insulin coverage low Heart healthy moderate carbohydrate diet 7.Osteoporosis with compression fractures Continue calcitonin spray nasal 8.GERD Continue Protonix 9. Hypokalemia likely sec to poor PO intake Replaced with KCl 10. Prostatic Enlargement s/p Recent TURP cont Finasteride 11.VTE prophylaxis Lovenox
[2017-03-20] MEDS: Meropenem 500 MG in Sodium Chloride 0.9% 100 ML IVPB SCH ×3 (01:29→17:31)
[2017-03-20 07:22] LABS: MEAN CELL VOLUME 81.5 fl (80.0-94.0); MEAN CORPUSCULAR HEMOGLOBIN 27.2 pg (27.0-31.0); MEAN CORPUSCULAR HGB CONC 33.3 g/dL (33.0-37.0); RED CELL DISTRIBUTION WIDTH 17.2 % (11.5-14.5)
--- NOTE | 2017-03-20 07:26 | CP.PCM.PN ---
Subjective - Date & Time of Evaluation Date of Evaluation: 03/20/17 Time of Evaluation: 10:00 - Subjective Subjective: Patient seen and examined bedside . Feeling well.No acute issues overnight. Hemodynamically stable, afebrile. Objective - Vital Signs/Intake and Output Vital Signs (last 24 hours): Temp Pulse Resp BP Pulse Ox 97.9 F 64 19 148/74 96 03/20/17 00:22 03/20/17 00:22 03/20/17 00:22 03/20/17 00:22 03/20/17 00:22 - Medications Medications: Current Medications Acetaminophen (Tylenol 325mg Tab) 650 mg PO Q6 PRN PRN Reason: Fever >100.4 F Acetaminophen (Tylenol 325mg Tab) 650 mg PO Q4H PRN PRN Reason: Pain, Mild (1-3) Last Admin: 03/19/17 19:53 Dose: 650 mg Amlodipine Besylate (Norvasc) 10 mg PO DAILY [facility] Last Admin: 03/19/17 08:55 Dose: 10 mg Calcitonin [place] (Miacalcin) 200 iu CELINA DAILY [facility] Last Admin: 03/19/17 08:57 Dose: 1 spray Enoxaparin Sodium (Lovenox) 40 mg SC DAILY [facility] PRN Reason: Protocol Last Admin: 03/19/17 08:56 Dose: 40 mg Finasteride (Proscar) 5 mg PO DAILY [facility] Last Admin: 03/19/17 08:56 Dose: 5 mg Meropenem 500 mg/ Sodium (Chloride) 100 mls @ 100 mls/hr IVPB Q8 [facility] PRN Reason: Protocol Last Admin: 03/20/17 01:29 Dose: 100 mls/hr Ibuprofen (Motrin Tab) 400 mg PO Q6 PRN PRN Reason: Fever >100.4 F Lactobacillus Acidophilus (Bacid Acidophilus) 1 cap PO BID [facility] Last Admin: 03/19/17 17:34 Dose: 1 cap Losartan Potassium (Cozaar) 100 mg PO DAILY [facility] Last Admin: 03/19/17 08:56 Dose: 100 mg Metformin HCl (Glucophage) 1,000 mg PO BID [facility] Last Admin: 03/19/17 17:35 Dose: 1,000 mg Metoprolol Succinate (Toprol Xl) 50 mg PO DAILY [facility] Last Admin: 03/19/17 08:55 Dose: 50 mg Metronidazole (Flagyl) 500 mg PO Q8 [facility] PRN Reason: Protocol Last Admin: 03/20/17 01:29 Dose: 500 mg Ondansetron HCl (Zofran Inj) 4 mg IVP Q6 PRN PRN Reason: Nausea/Vomiting Sitagliptin Phosphate (Januvia) 100 mg PO DAILY [facility] Last Admin: 03/19/17 08:56 Dose: 100 mg Tramadol HCl (Ultram) 50 mg PO Q6 PRN PRN Reason: Pain, moderate (4-7) - Labs Labs: 03/18/17 06:05 03/18/17 06:05 - Constitutional Appears: Non-toxic, No Acute Distress, Older Than Stated Age, Chronically Ill - Head Exam Head Exam: ATRAUMATIC, NORMAL INSPECTION, NORMOCEPHALIC - Eye Exam Eye Exam: EOMI, Normal appearance, PERRL Pupil Exam: NORMAL ACCOMODATION - ENT Exam ENT Exam: Mucous Membranes Moist, Normal Exam - Neck Exam Neck Exam: Full ROM, Normal Inspection - Respiratory Exam Respiratory Exam: Clear to Ausculation Bilateral, NORMAL BREATHING PATTERN. absent: Rales, Rhonchi, Wheezes - Cardiovascular Exam Cardiovascular Exam: REGULAR RHYTHM, RRR. absent: JVD - GI/Abdominal Exam GI & Abdominal Exam: Soft, Normal Bowel Sounds. absent: Distended, Guarding, Tenderness, Rebound - Rectal Exam Rectal Exam: Deferred - Exam Additional comments: left inguinal hernia - Extremities Exam Extremities Exam: Full ROM, Normal Capillary Refill, Normal Inspection. absent : Calf Tenderness, Pedal Edema - Back Exam Back Exam: NORMAL INSPECTION - Neurological Exam Neurological Exam: Alert, Awake, CN II-XII Intact, Oriented x3 - Psychiatric Exam Psychiatric exam: Anxious, Flat Affect - Skin Skin Exam: Dry, Pallor, Warm Assessment and Plan - Assessment and Plan (Free Text) Assessment: 66-year-old male with a past medical history of hypertension, diabetes non- insulin-dependent, GERD, osteoporosis, BPH status post TURP 2 weeks ago, compression fracture, cholecystectomy 2 months ago, presented after approximately one day history of acute onset constant and worsening generalized fatigue and weakness. Patient states he felt very weak and has been experiencing mild urinary discomfort upon urination, some urgency, but without flank pain, CVA tenderness, denies hematuria, or malodorous urine. He denies any associated nausea, vomiting, constipation, diarrhea, chest pain, dyspnea, or subjective fevers. In the emergency room patient was found to be mildly tachycardic heart rate 125, temperature 100.9, BP 162/92, respiratory rate 16, 95% saturating on room air. Lactic acid was 1.9, WBC 19.5. A urinalysis was positive for both nitrites and leukocyte esterase. Patient was initiated on 2 mg of Rocephin. Blood and urine cultures showed ESBL Klebsiella and abx was changed to Meropenem. Stool C diff Ag came back + 1.Sepsis secondary to Urinary tract infection On admission patient presented with weakness and some urinary discomfort UA positive for nitrites and leukocyte esterase with WBC 19.5, temperature 100.9 heart rate 125 urine culture : ESBL Klebsiella Changed Abx to IV Meropenem 03/17 , Would likely need 10 day of IV antibiotics ID consult : DR Andrea plan was to d/c patient to TCU for continuation of Iv antibiotics but was refused by insurance company Continue IV antibiotics in house for now 2. C Diff Antigen + Diarrhea Stool C diff + Ag but neg Toxin Pt had diarrhea so was started on PO Flagyl 3. Hydrocele and inguinal hernia CT abdomen & pelvis: Inguinal hernia urology eval- discussed case with Dr Keyes : no urologic intervention Hernia reducible, not strangulated 4.Hypertension controlled Continue amlodipine 10 mg by mouth daily, Toprol 50 mg by mouth daily 5. Mild anemia , chronic pt had multiple recent surgeries done in [facility] ( TURP and [place]) Monitor for now 6.Ztp-eeemrty-zhbfzaouh diabetes mellitus Stable Continue Januvia Held metformin for 48 hours since contrast for CT given Accu-Cheks before meals and at bedtime Sliding scale insulin coverage low Heart healthy moderate carbohydrate diet 7.Osteoporosis with compression fractures Continue calcitonin spray nasal 8.GERD Continue Protonix 9. Hypokalemia likely sec to poor PO intake Replaced with KCl 10. Prostatic Enlargement s/p Recent TURP cont Finasteride 11.VTE prophylaxis Lovenox
[2017-03-20 07:46] LABS: CALCIUM 9.3 mg/dL (8.4-10.2); CARBON DIOXIDE 26 mmol/L (22-30); CHLORIDE 109 mmol/L (98-107); GFR AFRICAN-AMERICAN > 60; GLUCOSE,RANDOM 132 mg/dL (75-110); POTASSIUM 3.2 MMOL/L (3.6-5.0); SODIUM 146 mmol/l (132-148)
[2017-03-20 07:48] LABS: BLOOD UREA NITROGEN 12 mg/dl (9-20)
[2017-03-20] MEDS: Lactobacillus Acidophilus 500 MU Cap PO SCH ×2 (09:26→16:39)
[2017-03-20] MEDS: Enoxaparin 40 mg Syringe SC SCH (09:27)
[2017-03-20] MEDS: Metoprolol Succinate 50 mg XL Tab PO SCH (09:30)
[2017-03-20] MEDS: Calcitonin 200 Int Units/Inh Nasal Spray (3.7 ml) NAS SCH (11:16)
[2017-03-20] MEDS ORDERED: Potassium Chloride 20 mEq/15 ml LIQ UD PO ONE (11:45)
[2017-03-21] MEDS: Meropenem 500 MG in Sodium Chloride 0.9% 100 ML IVPB SCH ×3 (00:05→16:03)
--- NOTE | 2017-03-21 07:46 | CP.PCM.PN ---
Subjective - Date & Time of Evaluation Date of Evaluation: 03/21/17 Time of Evaluation: 08:30 - Subjective Subjective: Patient seen and examined .Feeling better . Denies any abdominal pain , dysuria , chest pain or SOB.No acute issues overnight. Hemodynamically stable, afebrile. Still with some on and off diarrhea episodes Objective - Vital Signs/Intake and Output Vital Signs (last 24 hours): Temp Pulse Resp BP Pulse Ox 98 F 67 19 154/74 H 96 03/21/17 00:05 03/21/17 00:05 03/21/17 00:05 03/21/17 00:05 03/21/17 00:05 - Medications Medications: Current Medications Acetaminophen (Tylenol 325mg Tab) 650 mg PO Q6 PRN PRN Reason: Fever >100.4 F Acetaminophen (Tylenol 325mg Tab) 650 mg PO Q4H PRN PRN Reason: Pain, Mild (1-3) Last Admin: 03/21/17 00:13 Dose: 650 mg Amlodipine Besylate (Norvasc) 10 mg PO DAILY [facility] Last Admin: 03/20/17 09:29 Dose: 10 mg Calcitonin [place] (Miacalcin) 200 iu CELINA DAILY [facility] Last Admin: 03/20/17 11:16 Dose: 1 spray Enoxaparin Sodium (Lovenox) 40 mg SC DAILY [facility] PRN Reason: Protocol Last Admin: 03/20/17 09:27 Dose: 40 mg Finasteride (Proscar) 5 mg PO DAILY [facility] Last Admin: 03/20/17 09:29 Dose: 5 mg Meropenem 500 mg/ Sodium (Chloride) 100 mls @ 100 mls/hr IVPB Q8 [facility] PRN Reason: Protocol Last Admin: 03/21/17 00:05 Dose: 100 mls/hr Ibuprofen (Motrin Tab) 400 mg PO Q6 PRN PRN Reason: Fever >100.4 F Lactobacillus Acidophilus (Bacid Acidophilus) 1 cap PO BID [facility] Last Admin: 03/20/17 16:39 Dose: 1 cap Losartan Potassium (Cozaar) 100 mg PO DAILY [facility] Last Admin: 03/20/17 09:27 Dose: 100 mg Metformin HCl (Glucophage) 1,000 mg PO BID [facility] Last Admin: 03/20/17 16:41 Dose: 1,000 mg Metoprolol Succinate (Toprol Xl) 50 mg PO DAILY [facility] Last Admin: 03/20/17 09:30 Dose: 50 mg Metronidazole (Flagyl) 500 mg PO Q8 [facility] PRN Reason: Protocol Last Admin: 03/21/17 00:05 Dose: 500 mg Ondansetron HCl (Zofran Inj) 4 mg IVP Q6 PRN PRN Reason: Nausea/Vomiting Sitagliptin Phosphate (Januvia) 100 mg PO DAILY [facility] Last Admin: 03/20/17 09:27 Dose: 100 mg Tramadol HCl (Ultram) 50 mg PO Q6 PRN PRN Reason: Pain, moderate (4-7) Last Admin: 03/21/17 03:38 Dose: 50 mg - Labs Labs: 03/20/17 05:30 03/20/17 05:30 - Constitutional Appears: Non-toxic, No Acute Distress, Older Than Stated Age, Cachectic, Chronically Ill - Head Exam Head Exam: ATRAUMATIC, NORMOCEPHALIC - Eye Exam Eye Exam: EOMI, PERRL Pupil Exam: NORMAL ACCOMODATION - ENT Exam ENT Exam: Mucous Membranes Moist, Normal Exam - Neck Exam Neck Exam: Full ROM, Normal Inspection - Respiratory Exam Respiratory Exam: Clear to Ausculation Bilateral, NORMAL BREATHING PATTERN. absent: Rales, Rhonchi, Wheezes - Cardiovascular Exam Cardiovascular Exam: REGULAR RHYTHM, RRR, +S1, +S2. absent: JVD - GI/Abdominal Exam GI & Abdominal Exam: Soft, Normal Bowel Sounds. absent: Distended, Guarding, Tenderness, Rebound - Rectal Exam Rectal Exam: Deferred - Exam Additional comments: left inguinal hernia - Extremities Exam Extremities Exam: Full ROM, Normal Capillary Refill, Normal Inspection. absent : Calf Tenderness, Pedal Edema - Back Exam Back Exam: NORMAL INSPECTION - Neurological Exam Neurological Exam: Alert, Awake, Oriented x3 - Psychiatric Exam Psychiatric exam: Flat Affect - Skin Skin Exam: Dry, Pallor, Warm Assessment and Plan - Assessment and Plan (Free Text) Assessment: 66-year-old male with a past medical history of hypertension, diabetes non- insulin-dependent, GERD, osteoporosis, BPH status post TURP 2 weeks ago, compression fracture, cholecystectomy 2 months ago, presented after approximately one day history of acute onset constant and worsening generalized fatigue and weakness. Patient states he felt very weak and has been experiencing mild urinary discomfort upon urination, some urgency, but without flank pain, CVA tenderness, denies hematuria, or malodorous urine. He denies any associated nausea, vomiting, constipation, diarrhea, chest pain, dyspnea, or subjective fevers. In the emergency room patient was found to be mildly tachycardic heart rate 125, temperature 100.9, BP 162/92, respiratory rate 16, 95% saturating on room air. Lactic acid was 1.9, WBC 19.5. A urinalysis was positive for both nitrites and leukocyte esterase. Patient was initiated on 2 mg of Rocephin. Blood and urine cultures showed ESBL Klebsiella and abx was changed to Meropenem. Stool C diff Ag came back + 1.Sepsis secondary to Urinary tract infection On admission patient presented with weakness and some urinary discomfort UA positive for nitrites and leukocyte esterase with WBC 19.5, temperature 100.9 heart rate 125 urine culture : ESBL Klebsiella Changed Abx to IV Meropenem 03/17 , Would likely need 10 day of IV antibiotics ID consult : DR Andrea plan was to d/c patient to TCU for continuation of Iv antibiotics but was refused by insurance company Continue IV antibiotics in house for now 2. C Diff Antigen + Diarrhea Stool C diff + Ag but neg Toxin with on and off diarrhea so was started on PO Flagyl 3. Hydrocele and inguinal hernia CT abdomen & pelvis: Inguinal hernia urology eval- discussed case with Dr Keyes : no urologic intervention Hernia reducible, not strangulated 4.Hypertension controlled Continue amlodipine 10 mg by mouth daily, Toprol 50 mg by mouth daily 5. Mild anemia , chronic pt had multiple recent surgeries done in [facility] ( TURP and [place]) Monitor for now 6.Xlp-izbyjij-avxfronkb diabetes mellitus Stable Continue Januvia Held metformin for 48 hours since contrast for CT given, now resumed Accu-Cheks before meals and at bedtime Sliding scale insulin coverage low Heart healthy moderate carbohydrate diet 7.Osteoporosis with compression fractures Continue calcitonin spray nasal 8.GERD Continue Protonix 9. Hypokalemia likely sec to poor PO intake Replaced with KCl 10. Prostatic Enlargement s/p Recent TURP cont Finasteride 11.VTE prophylaxis Lovenox
[2017-03-21] MEDS: Lactobacillus Acidophilus 500 MU Cap PO SCH ×2 (08:04→16:03)
[2017-03-21] MEDS: Metoprolol Succinate 50 mg XL Tab PO SCH (08:05)
[2017-03-21] MEDS: Enoxaparin 40 mg Syringe SC SCH (08:06)
[2017-03-21] MEDS: Calcitonin 200 Int Units/Inh Nasal Spray (3.7 ml) NAS SCH (08:06)
[2017-03-22] MEDS: Meropenem 500 MG in Sodium Chloride 0.9% 100 ML IVPB SCH ×2 (00:30→08:17)
[2017-03-22 06:13] LABS: BLOOD UREA NITROGEN 15 mg/dl (9-20); CALCIUM 9.2 mg/dL (8.4-10.2); CARBON DIOXIDE 25 mmol/L (22-30); CHLORIDE 105 mmol/L (98-107); GFR AFRICAN-AMERICAN > 60; GLUCOSE,RANDOM 154 mg/dL (75-110); POTASSIUM 3.5 MMOL/L (3.6-5.0); SODIUM 142 mmol/l (132-148)
[2017-03-22 06:20] LABS: MEAN CELL VOLUME 82.1 fl (80.0-94.0); MEAN CORPUSCULAR HEMOGLOBIN 26.9 pg (27.0-31.0); MEAN CORPUSCULAR HGB CONC 32.7 g/dL (33.0-37.0); RED CELL DISTRIBUTION WIDTH 17.4 % (11.5-14.5); WHITE BLOOD COUNT 11.8 K/uL (4.8-10.8)
[2017-03-22] MEDS: Lactobacillus Acidophilus 500 MU Cap PO SCH (08:17)
[2017-03-22] MEDS: Calcitonin 200 Int Units/Inh Nasal Spray (3.7 ml) NAS SCH (08:18)
[2017-03-22] MEDS: Enoxaparin 40 mg Syringe SC SCH (08:18)
[2017-03-22] MEDS: Metoprolol Succinate 50 mg XL Tab PO SCH (08:18)
--- NOTE | 2017-03-22 10:22 | CP.PCM.DIS ---
Provider - Provider Date of Admission: 03/15/17 04:18 Attending physician: Nellie Tinsley DO Primary care physician: None Consults: urology consult ID consult Time Spent in preparation of Discharge (in minutes): 20 Hospital Course - Lab Results Lab Results: Micro Results 03/15/17 03:20 Blood Blood Culture - Final NO GROWTH AFTER 5 DAYS 03/15/17 03:20 Blood Gram Stain - Final TEST NOT PERFORMED 03/15/17 02:00 Blood Blood Culture - Final NO GROWTH AFTER 5 DAYS 03/15/17 02:00 Blood Gram Stain - Final TEST NOT PERFORMED 03/15/17 06:49 Urine Urine Culture - Final Klebsiella Pneumoniae Ssp Pneu Most Recent Lab Values WBC 11.8 K/uL (4.8-10.8) H D 03/22/17 05:25 RBC 4.39 Mil/uL (4.40-5.90) L 03/22/17 05:25 Hgb 11.8 g/dL (12.0-18.0) L 03/22/17 05:25 Hct 36.0 % (35.0-51.0) 03/22/17 05:25 MCV 82.1 fl (80.0-94.0) 03/22/17 05:25 MCH 26.9 pg (27.0-31.0) L 03/22/17 05:25 MCHC 32.7 g/dL (33.0-37.0) L 03/22/17 05:25 RDW 17.4 % (11.5-14.5) H 03/22/17 05:25 Plt Count 277 K/uL (130-400) 03/22/17 05:25 MPV 8.1 fl (7.2-11.7) 03/16/17 04:20 Neut % (Auto) 72.1 % (50.0-75.0) 03/16/17 04:20 Lymph % (Auto) 17.1 % (20.0-40.0) L 03/16/17 04:20 Yell % (Auto) 10.0 % (0.0-10.0) 03/16/17 04:20 Eos % (Auto) 0.5 % (0.0-4.0) 03/16/17 04:20 Baso % (Auto) 0.3 % (0.0-2.0) 03/16/17 04:20 Neut # 10.4 K/uL (1.8-7.0) H 03/16/17 04:20 Lymph # 2.5 K/uL (1.0-4.3) 03/16/17 04:20 Yell # 1.4 K/uL (0.0-0.8) H 03/16/17 04:20 Eos # 0.1 K/uL (0.0-0.7) 03/16/17 04:20 Baso # 0.0 K/uL (0.0-0.2) 03/16/17 04:20 Neutrophils % (Manual) 92 % (42-75) H 03/15/17 02:57 Band Neutrophils % 3 % (0-2) H 03/15/17 02:57 Lymphocytes % (Manual) 3 % (20-50) L 03/15/17 02:57 Monocytes % (Manual) 2 % (0-10) 03/15/17 02:57 Platelet Estimate Normal (NORMAL) 03/15/17 02:57 Anisocytosis (manual) Slight 03/15/17 02:57 Sodium 142 mmol/l (132-148) 03/22/17 05:25 Potassium 3.5 MMOL/L (3.6-5.0) L 03/22/17 05:25 Chloride 105 mmol/L (98-107) 03/22/17 05:25 Carbon Dioxide 25 mmol/L (22-30) 03/22/17 05:25 Anion Gap 16 (10-20) 03/22/17 05:25 BUN 15 mg/dl (9-20) 03/22/17 05:25 Creatinine 0.7 mg/dL (0.8-1.5) L 03/22/17 05:25 Est GFR ( Amer) > 60 03/22/17 05:25 Est GFR (Non-Af Amer) > 60 03/22/17 05:25 POC Glucose (mg/dL) 157 mg/dL (65-110) H 03/22/17 06:06 Random Glucose 154 mg/dL (75-110) H 03/22/17 05:25 Lactic Acid 1.9 MMOL/L (0.7-2.1) 03/15/17 02:57 Calcium 9.2 mg/dL (8.4-10.2) 03/22/17 05:25 Total Bilirubin 0.3 mg/dl (0.2-1.3) 03/15/17 02:57 AST 13 U/L (17-59) L 03/15/17 02:57 ALT 31 U/L (21-72) 03/15/17 02:57 Alkaline Phosphatase 70 U/L (38-126) 03/15/17 02:57 Total Protein 6.9 G/DL (6.3-8.2) 03/15/17 02:57 Albumin 3.9 g/dL (3.5-5.0) 03/15/17 02:57 Globulin 2.9 gm/dL (2.2-3.9) 03/15/17 02:57 Albumin/Globulin Ratio 1.3 (1.0-2.1) 03/15/17 02:57 Urine Color Yellow (YELLOW) 03/15/17 04:13 Urine Clarity Cloudy (Clear) 03/15/17 04:13 Urine pH 5.0 (5.0-8.0) 03/15/17 04:13 Ur Specific [place] 1.017 (1.003-1.030) 03/15/17 04:13 Urine Protein 100 mg/dL (NEGATIVE) 03/15/17 04:13 Urine Glucose (UA) Neg mg/dL (Normal) 03/15/17 04:13 Urine Ketones Trace mg/dL (NEGATIVE) 03/15/17 04:13 Urine Blood Large (NEGATIVE) 03/15/17 04:13 Urine Nitrate Positive (NEGATIVE) H 03/15/17 04:13 Urine Bilirubin Negative (NEGATIVE) 03/15/17 04:13 Urine Urobilinogen 0.2-1.0 mg/dL (0.2-1.0) 03/15/17 04:13 Ur Leukocyte Esterase Large [place]/uL (Negative) 03/15/17 04:13 Urine RBC (Auto) 320 /hpf (0-3) H 03/15/17 04:13 Urine Microscopic WBC 272 /hpf (0-5) H 03/15/17 04:13 Ur Squamous Epith Cells 1 /hpf (0-5) 03/15/17 04:13 Urine Bacteria Rare (<OCC) 03/15/17 04:13 Hyaline Casts 0-2 /hpf (0-2) 03/15/17 04:13 C. difficile Ag & Toxin Positive antigen (NEGATIVE) 03/17/17 18:00 HIV-1 Ab Rapid Screen Non reactive (NON REAC) 03/19/17 06:22 Influenza Typ A,B (EIA) Negative for flu a/b (NEGATIVE) 03/15/17 02:57 - Hospital Course Hospital Course: 66-year-old male with a past medical history of hypertension, diabetes non- insulin-dependent, GERD, osteoporosis, BPH status post TURP 2 weeks ago, compression fracture, cholecystectomy 2 months ago, presented after approximately one day history of acute onset constant and worsening generalized fatigue and weakness. Patient states he felt very weak and has been experiencing mild urinary discomfort upon urination, some urgency, but without flank pain, CVA tenderness, denies hematuria, or malodorous urine. He denies any associated nausea, vomiting, constipation, diarrhea, chest pain, dyspnea, or subjective fevers. In the emergency room patient was found to be mildly tachycardic heart rate 125, temperature 100.9, BP 162/92, respiratory rate 16, 95% saturating on room air. Lactic acid was 1.9, WBC 19.5. A urinalysis was positive for both nitrites and leukocyte esterase. Patient was initiated on 2 mg of Rocephin. Blood and urine cultures showed ESBL Klebsiella and abx was changed to Meropenem. Stool C diff Ag came back + zand he wsa started on Flagyl PO . patient now will be discharged to [facility] for continuation of IV antibiotics. 1.Sepsis secondary to Urinary tract infection On admission patient presented with weakness and some urinary discomfort UA positive for nitrites and leukocyte esterase with WBC 19.5, temperature 100.9 heart rate 125 urine culture : ESBL Klebsiella Changed Abx to IV Meropenem 03/17 , Would need 10 day of IV antibiotics, 5 more days ID consult : DR Andrea d/c patient to TCU for continuation of Iv antibiotics today . 2. C Diff Antigen + Diarrhea Stool C diff + Ag but neg Toxin with on and off diarrhea so was started on PO Flagyl 3. Hydrocele and inguinal hernia CT abdomen & pelvis: Inguinal hernia urology eval- discussed case with Dr Keyes : no urologic intervention Hernia reducible, not strangulated 4.Hypertension controlled Continue amlodipine 10 mg by mouth daily, Toprol 50 mg by mouth daily 5. Mild anemia , chronic pt had multiple recent surgeries done in [facility] ( TURP and [facility] [place]) Monitor for now 6.Zzs-yazkrvl-nzlbfiqdx diabetes mellitus Stable Continue Januvia and Metformin Accu-Cheks before meals and at bedtime Sliding scale insulin coverage low Heart healthy moderate carbohydrate diet 7.Osteoporosis with compression fractures Continue calcitonin spray nasal 8.GERD Continue Protonix 9. Hypokalemia likely sec to poor PO intake Replace with KCl 10. Prostatic Enlargement s/p Recent TURP cont Finasteride 11.VTE prophylaxis Lovenox Discharge Exam - Head Exam Head Exam: ATRAUMATIC, NORMOCEPHALIC - Eye Exam Eye Exam: EOMI, PERRL Pupil Exam: NORMAL ACCOMODATION, PERRL - ENT Exam ENT Exam: Mucous Membranes Moist, Normal Exam - Neck Exam Neck exam: Full Rom, Normal Inspection - Respiratory Exam Respiratory Exam: Clear to PA & Lateral, NORMAL BREATHING PATTERN. absent: Rales, Rhonchi, Wheezes - Cardiovascular Exam Cardiovascular Exam: REGULAR RHYTHM, RRR, +S1, +S2. absent: JVD - GI/Abdominal Exam GI & Abdominal Exam: Hernia (left inguinal hernia), Normal Bowel Sounds, Soft. absent: Guarding, Rebound, Tenderness - Rectal Exam Rectal Exam: Deferred - Extremities Exam Extremities exam: normal capillary refill, normal inspection, pedal pulses present - Back Exam Back exam: NORMAL INSPECTION - Neurological Exam Neurological exam: Alert, CN II-XII Intact, Oriented x3, Reflexes Normal - Psychiatric Exam Psychiatric exam: Anxious, Flat Affect - Skin Skin Exam: Dry, Pallor, Warm Discharge Plan - Follow Up Plan Condition: STABLE Disposition: TRANSF TO SNF Patient education suggested?: Yes Instructions: Urinary Tract Infection in Men (DC), Inguinal Hernia (DC) Referrals: Deonna Keyes MD [Medical Doctor] -
[2017-03-22] MEDS ORDERED: Potassium Chloride 20 mEq/15 ml LIQ UD PO ONE (11:45)
[2017-03-22 16:04] VITALS: BP 160/88; PULSE 77; RESP 18; TEMP 98.6; O2SAT 97
== END 2017-03-22 16:10 | DRG 872 ==
LOC: H.ER 01:49 → H.ERHOLD 04:18 → H.TEL 06:25 → H.MEDSURG1 03-16 23:05 → UNDODISIN 03-19 14:36 → H.MEDSURG1 03-19 15:14
PROVIDERS: ADMIT Student in an Organized Health Care Education/Training Program; ATTEND Student in an Organized Health Care Education/Training Program
DX: A41.9 Sepsis, unspecified organism (principal); E11.65 Type 2 diabetes mellitus with hyperglycemia; I10 Essential (primary) hypertension; M80.00XA Age-related osteoporosis with current pathological fracture, unspecified site, initial encounter for fracture; N39.0 Urinary tract infection, site not specified; D64.9 Anemia, unspecified; E87.6 Hypokalemia; K21.9 Gastro-esophageal reflux disease without esophagitis; K40.90 Unilateral inguinal hernia, without obstruction or gangrene, not specified as recurrent; N40.0 Benign prostatic hyperplasia without lower urinary tract symptoms; N43.3 Hydrocele, unspecified; Z79.84 Long term (current) use of oral hypoglycemic drugs; Z79.899 Other long term (current) drug therapy; Z90.49 Acquired absence of other specified parts of digestive tract; Z90.79 Acquired absence of other genital organ(s); R00.0 Tachycardia, unspecified; R10.30 Lower abdominal pain, unspecified; R19.7 Diarrhea, unspecified

== ENCOUNTER 2017-03-19 12:00 | Inpatient (IN) | payer BC, OTHER ==
[2017-03-22 16:57] VITALS: RESP 20
[2017-03-22] MEDS ORDERED: Pneumococcal 23-Valent Vaccine IM ONE ×2 (18:00→21:00)
[2017-03-22] MEDS ORDERED: Influenza Vaccine(65YR UP)/PF 180 MCG/0.5 ML SYRINGE IM ONE (21:00)
[2017-03-23] MEDS: Meropenem 500 MG in Sodium Chloride 0.9% 100 ML IVPB SCH ×3 (00:21→16:10)
[2017-03-23] MEDS ORDERED: Patient's Own Med (Meropenem [Merrem Iv] 500 MG) IVPB SCH (01:00)
[2017-03-23] MEDS: Lactobacillus Acidophilus 500 MU Cap PO SCH ×2 (09:24→16:09)
[2017-03-23] MEDS: Enoxaparin 40 mg Syringe SC SCH (09:25)
[2017-03-23] MEDS: Pantoprazole 40 mg EC Tab PO SCH (09:26)
[2017-03-23] MEDS: Metoprolol Succinate 50 mg XL Tab PO SCH (09:26)
[2017-03-23] MEDS: Calcitonin 200 Int Units/Inh Nasal Spray (3.7 ml) NAS SCH (09:30)
--- NOTE | 2017-03-23 13:25 | CP.PCM.HP ---
History of Present Illness - History of Present Illness History of Present Illness: CC: Fatigue This is a 66 year old male with a past medical history significant for hypertension, Type 2 DM, GERD, osteoporosis, BPH s/p TURP 2 weeks ago, compression fracture, who presented initially to [facility] ED complaining of acute onsent worsening generalized fatigue and weakness on 03/15/2017. The patient was found in the ED to have a UTI with sepsis, with U/A showing nitrites and leukocyte esterase. The patient recieved Rocephin, then Meropenem due to blood and urine cultures showing ESBL Klebsiella. The patient was also started on Flagyl PO as Stool C. diff antigen came back positive. The patient was subsequently discharged from the hospital and admitted to the TCU. Currently in the TCU, the patient states that he is feeling a little better. He is working with physical therapy and reports feeling stronger. He is continuing to receive IV antibioticsPatient denies chest pain, shortness of breath, fevers, chills, nausea, vomiting, diarrhea, headache. Rest of ROS as below. All of the patient' s and/or family's questions were answered at the bedside. Present on Admission - Present on Admission Any Indicators Present on Admission: No Review of Systems - Hematologic/Lymphatic Additional comments: GENERAL/CONSTITUTIONAL: The patient admits to fatigue, although states he is improving. He denies fever, weight gain or weight loss. HEAD, EYES, EARS, NOSE AND THROAT: Eyes - The patient denies pain, redness, loss of vision, double or blurred vision, flashing lights or spots, dryness, Ears, nose, mouth and throat. The patient denies ringing in the ears, loss of hearing, nosebleeds, loss of sense of smell, dry sinuses, sinusitis, post nasal drip, CARDIOVASCULAR: The patient denies chest pain, chest pressure, or irregular heartbeats, RESPIRATORY: The patient denies chronic dry cough, coughing up blood, coughing up mucus, wheezing, or shortness of breath. GASTROINTESTINAL: The patient denies decreased appetite, nausea, vomiting, vomiting blood or coffee ground material, heartburn, regurgitation, diarrhea, constipation, gas, blood in the stools, black tarry stools. GENITOURINARY: The patient denies difficult urination, pain or burning with urination, blood in the urine, frequency, or urgency MUSCULOSKELETAL: The patient denies arm, buttock, thigh or calf cramps. No joint or muscle pain. No muscle weakness or tenderness. No joint swelling, neck pain, back pain. SKIN: The patient denies easy bruising, skin redness, skin rash, hives, sensitivity to sun exposure, tightness, nodules or bumps, hair loss, color changes in the hands or feet with cold. NEUROLOGIC: The patient denies headache, dizziness, fainting, muscle spasm, loss of consciousness, sensitivity or pain in the hands and feet or memory loss. PSYCHIATRIC: The patient denies anxiety, depression, or thoughts of suicide. ENDOCRINE: The patient denies intolerance to hot or cold temperature, flushing, fingernail changes, increased thirst, increased salt intake or decreased sexual desire. HEMATOLOGIC/LYMPHATIC: The patient denies anemia, bleeding tendency or clotting tendency. ALLERGIC/IMMUNOLOGIC: The patient denies rhinitis, asthma, skin sensitivity, latex allergies or sensitivity. Past Patient History - Infectious Disease Hx of Infectious Diseases: None - Past Medical History & Family History Past Medical History?: Yes - Past Social History Smoking Status: Never Smoked - CARDIAC Hx Hypertension: Yes - PULMONARY Hx Respiratory Disorders: No - NEUROLOGICAL Hx Neurological Disorder: No - HEENT Hx HEENT Problems: Yes - RENAL Hx Chronic Kidney Disease: No - ENDOCRINE/METABOLIC Hx Diabetes Mellitus Type 2: Yes - HEMATOLOGICAL/ONCOLOGICAL Hx Blood Disorders: No - INTEGUMENTARY Hx Dermatological Problems: No - MUSCULOSKELETAL/RHEUMATOLOGICAL Hx Falls: No Hx Osteoporosis: Yes - GASTROINTESTINAL Hx Gastrointestinal Disorders: No - GENITOURINARY/GYNECOLOGICAL Hx Genitourinary Disorders: Yes Hx Prostate Problems: Yes - PSYCHIATRIC Hx Psychophysiologic Disorder: No Hx Substance Use: No - SURGICAL HISTORY Hx Cholecystectomy: Yes (12/2016) - ANESTHESIA Hx Anesthesia: Yes Hx Anesthesia Reactions: No Meds Allergies/Adverse Reactions: Allergies Allergy/AdvReac Type Severity Reaction Status Date / Time No Known Allergies Allergy Verified 03/22/17 15:45 Physical Exam - Additional Findings Additional findings: Physical exam: Constitutional- cooperative, awake, alert, sitting up in bed. Appears comfortable. Head- NCAT, PERRL Eye- PERRL, normal accommodation ENT- normal exam, MMM. Neck- normal inspection, supple, no JVD Respiratory- CTAB, no wheezes rales rhonchi Cardiovascular- RRR, +S1, +S2 no MRG GI/Abdominal- normal bowel sounds, soft Skin- warm, dry Extremities Exam- normal capillary refill, normal inspection Neurological Exam- alert, stable gait Psych- normal mood, normal affect Results - Vital Signs Recent Vital Signs: Last Vital Signs Temp 97.5 F L 03/23/17 08:47 Pulse 67 03/23/17 09:26 Resp 20 03/23/17 08:47 BP 158/78 H 03/23/17 09:26 Pulse Ox 97 03/23/17 08:47 - Labs Labs: Laboratory Results - last 24 hr 03/22/17 03/23/17 03/23/17 20:43 05:58 11:12 POC Glucose (mg/dL) 154 H 108 191 H Assessment & Plan - Assessment and Plan (Free Text) Plan: 1.Sepsis secondary to Urinary tract infection On admission to [facility] on 03/15 patient presented with weakness and some urinary discomfort urine culture : ESBL Klebsiella Changed Abx to IV Meropenem 03/17 , Would need 10 day total of IV antibiotics, 4 more days (last day being 03/26) ID consult : DR Andrea 2. C Diff Antigen + Diarrhea Stool C diff + Ag but neg Toxin with on and off diarrhea so was started on PO Flagyl 3. Hydrocele and inguinal hernia CT abdomen & pelvis: Inguinal hernia urology eval- discussed case with Dr Keyes : no urologic intervention Hernia reducible, not strangulated 4.Hypertension controlled Continue amlodipine 10 mg by mouth daily, Toprol 50 mg by mouth daily 5. Mild anemia , chronic pt had multiple recent surgeries done in [facility] ( TURP and [facility] [place]) Monitor for now 6.Csz-vhfxnuu-qjxjcndch diabetes mellitus Stable Continue Januvia and Metformin Accu-Cheks before meals and at bedtime Sliding scale insulin coverage low Heart healthy moderate carbohydrate diet 7.Osteoporosis with compression fractures Continue calcitonin spray nasal 8.GERD Continue Protonix 9. Hypokalemia likely sec to poor PO intake Replace with KCl 10. Prostatic Enlargement s/p Recent TURP cont Finasteride 11.VTE prophylaxis Lovenox - Date & Time Date: 03/23/17 Time: 10:00
--- NOTE | 2017-03-23 17:42 | CP.PCM.PN ---
Subjective - Date & Time of Evaluation Date of Evaluation: 03/23/17 Time of Evaluation: 17:40 - Subjective Subjective: I D NOTE WBC:11.8 7.0 INCREASED OVER PAST FEW DAYS FROM 7.0.INITIALLY WAS 19 HAVE REPEATED URINE CULTURE,CBC,CMP Objective - Vital Signs/Intake and Output Vital Signs (last 24 hours): Temp Pulse Resp BP Pulse Ox 97.9 F 74 20 117/66 99 03/23/17 16:29 03/23/17 16:29 03/23/17 16:29 03/23/17 16:29 03/23/17 16:29 - Medications Medications: Current Medications Acetaminophen (Tylenol 325mg Tab) 650 mg PO Q4H PRN PRN Reason: Pain, Mild (1-3) Last Admin: 03/22/17 23:44 Dose: 650 mg Acetaminophen (Tylenol 325mg Tab) 650 mg PO Q6 PRN PRN Reason: Fever >100.4 F Amlodipine Besylate (Norvasc) 10 mg PO DAILY [facility] Last Admin: 03/23/17 09:25 Dose: 10 mg Calcitonin [place] (Miacalcin) 200 iu CELINA DAILY [facility] Last Admin: 03/23/17 09:30 Dose: 200 iu Enoxaparin Sodium (Lovenox) 40 mg SC DAILY [facility] PRN Reason: Protocol Last Admin: 03/23/17 09:25 Dose: 40 mg Finasteride (Proscar) 5 mg PO DAILY [facility] Last Admin: 03/23/17 09:26 Dose: 5 mg Meropenem 500 mg/ Sodium (Chloride) 100 mls @ 100 mls/hr IVPB Q8 [facility] Last Admin: 03/23/17 16:10 Dose: 100 mls/hr Ibuprofen (Motrin Tab) 400 mg PO Q6 PRN PRN Reason: Fever >100.4 F Lactobacillus Acidophilus (Bacid Acidophilus) 1 cap PO BID [facility] Last Admin: 03/23/17 16:09 Dose: 1 cap Losartan Potassium (Cozaar) 100 mg PO DAILY [facility] Last Admin: 03/23/17 09:26 Dose: 100 mg Metformin HCl (Glucophage) 1,000 mg PO BID [facility] Last Admin: 03/23/17 16:09 Dose: 1,000 mg Metoprolol Succinate (Toprol Xl) 50 mg PO DAILY [facility] Last Admin: 03/23/17 09:26 Dose: 50 mg Metronidazole (Flagyl) 500 mg PO Q8 [facility] PRN Reason: Protocol Last Admin: 03/23/17 16:09 Dose: 500 mg Pantoprazole Sodium (Protonix Ec Tab) 40 mg PO DAILY [facility] Last Admin: 03/23/17 09:26 Dose: 40 mg Sitagliptin Phosphate (Januvia) 100 mg PO DAILY [facility] Last Admin: 03/23/17 09:26 Dose: 100 mg Tramadol HCl (Ultram) 50 mg PO Q6 PRN PRN Reason: Pain, moderate (4-7)
[2017-03-24 06:38] LABS: BASO % 0.5 % (0.0-2.0); EOS # 0.2 K/uL (0.0-0.7); EOS % 2.4 % (0.0-4.0); HEMATOCRIT 33.3 % (35.0-51.0); LYMPH % 39.6 % (20.0-40.0); MEAN CELL VOLUME 81.3 fl (80.0-94.0); MEAN CORPUSCULAR HEMOGLOBIN 27.1 pg (27.0-31.0); MEAN CORPUSCULAR HGB CONC 33.4 g/dL (33.0-37.0); MEAN PLATELET VOLUME 7.5 fl (7.2-11.7); MONO # 0.8 K/uL (0.0-0.8); MONO % 9.9 % (0.0-10.0); NEUT # 3.6 K/uL (1.8-7.0); NEUT % 47.6 % (50.0-75.0); RED CELL DISTRIBUTION WIDTH 17.4 % (11.5-14.5); WHITE BLOOD COUNT 7.6 K/uL (4.8-10.8)
[2017-03-24 06:41] LABS: ALB/GLOB RATIO 1.3 (1.0-2.1); ALKALINE PHOSPHATASE 61 U/L (38-126); ALT/SGPT 40 U/L (21-72); AST/SGOT 26 U/L (17-59); BILIRUBIN,TOTAL 0.2 mg/dl (0.2-1.3); BLOOD UREA NITROGEN 15 mg/dl (9-20); CALCIUM 9.1 mg/dL (8.4-10.2); CARBON DIOXIDE 28 mmol/L (22-30); CHLORIDE 106 mmol/L (98-107); GFR AFRICAN-AMERICAN > 60; GLUCOSE,RANDOM 104 mg/dL (75-110); POTASSIUM 3.3 MMOL/L (3.6-5.0); SODIUM 143 mmol/l (132-148); TOTAL PROTEIN 6.1 G/DL (6.3-8.2)
[2017-03-24] MEDS: Enoxaparin 40 mg Syringe SC SCH (09:13)
[2017-03-24] MEDS: Metoprolol Succinate 50 mg XL Tab PO SCH (09:14)
[2017-03-24] MEDS: Pantoprazole 40 mg EC Tab PO SCH (09:15)
[2017-03-24] MEDS: Meropenem 500 MG in Sodium Chloride 0.9% 100 ML IVPB SCH ×4 (09:19→23:59)
[2017-03-24] MEDS: Calcitonin 200 Int Units/Inh Nasal Spray (3.7 ml) NAS SCH (09:22)
[2017-03-24] MEDS: Lactobacillus Acidophilus 500 MU Cap PO SCH ×2 (10:12→17:26)
[2017-03-25] MEDS: Meropenem 500 MG in Sodium Chloride 0.9% 100 ML IVPB SCH ×2 (08:42→16:16)
[2017-03-25] MEDS: Lactobacillus Acidophilus 500 MU Cap PO SCH ×2 (08:42→16:16)
[2017-03-25] MEDS: Pantoprazole 40 mg EC Tab PO SCH (08:42)
[2017-03-25] MEDS: Enoxaparin 40 mg Syringe SC SCH (08:43)
[2017-03-25] MEDS: Metoprolol Succinate 50 mg XL Tab PO SCH (08:43)
[2017-03-25] MEDS: Calcitonin 200 Int Units/Inh Nasal Spray (3.7 ml) NAS SCH (08:45)
--- NOTE | 2017-03-25 13:30 | CP.PCM.PN ---
Subjective - Date & Time of Evaluation Date of Evaluation: 03/25/17 Time of Evaluation: 13:27 - Subjective Subjective: pt seen examined bedside for UTI continuation of ABX patient states he feels well today no complaints HD stable Objective - Vital Signs/Intake and Output Vital Signs (last 24 hours): Temp Pulse Resp BP Pulse Ox 97.5 F L 68 20 148/78 99 03/25/17 08:10 03/25/17 08:44 03/25/17 08:10 03/25/17 08:44 03/25/17 08:10 - Medications Medications: Current Medications Acetaminophen (Tylenol 325mg Tab) 650 mg PO Q4H PRN PRN Reason: Pain, Mild (1-3) Last Admin: 03/24/17 17:27 Dose: 650 mg Acetaminophen (Tylenol 325mg Tab) 650 mg PO Q6 PRN PRN Reason: Fever >100.4 F Amlodipine Besylate (Norvasc) 10 mg PO DAILY [facility] Last Admin: 03/25/17 08:42 Dose: 10 mg Calcitonin [place] (Miacalcin) 200 iu CELINA DAILY [facility] Last Admin: 03/25/17 08:45 Dose: 200 iu Enoxaparin Sodium (Lovenox) 40 mg SC DAILY [facility] PRN Reason: Protocol Last Admin: 03/25/17 08:43 Dose: 40 mg Finasteride (Proscar) 5 mg PO DAILY [facility] Last Admin: 03/25/17 08:43 Dose: 5 mg Meropenem 500 mg/ Sodium (Chloride) 100 mls @ 100 mls/hr IVPB Q8 [facility] Last Admin: 03/25/17 08:42 Dose: 100 mls/hr Ibuprofen (Motrin Tab) 400 mg PO Q6 PRN PRN Reason: Fever >100.4 F Lactobacillus Acidophilus (Bacid Acidophilus) 1 cap PO BID [facility] Last Admin: 03/25/17 08:42 Dose: 1 cap Losartan Potassium (Cozaar) 100 mg PO DAILY [facility] Last Admin: 03/25/17 08:44 Dose: 100 mg Metformin HCl (Glucophage) 1,000 mg PO BID [facility] Last Admin: 03/25/17 08:44 Dose: 1,000 mg Metoprolol Succinate (Toprol Xl) 50 mg PO DAILY [facility] Last Admin: 03/25/17 08:43 Dose: 50 mg Metronidazole (Flagyl) 500 mg PO Q8 [facility] PRN Reason: Protocol Last Admin: 03/25/17 08:43 Dose: 500 mg Pantoprazole Sodium (Protonix Ec Tab) 40 mg PO DAILY [facility] Last Admin: 03/25/17 08:42 Dose: 40 mg Sitagliptin Phosphate (Januvia) 100 mg PO DAILY [facility] Last Admin: 03/25/17 08:44 Dose: 100 mg Tramadol HCl (Ultram) 50 mg PO Q6 PRN PRN Reason: Pain, moderate (4-7) Last Admin: 03/25/17 00:01 Dose: 50 mg - Labs Labs: 03/24/17 05:50 03/24/17 05:50 - Constitutional Appears: Non-toxic, No Acute Distress - Head Exam Head Exam: ATRAUMATIC, NORMOCEPHALIC - Eye Exam Eye Exam: EOMI, Normal appearance - ENT Exam ENT Exam: Mucous Membranes Moist, Normal Oropharynx - Neck Exam Neck Exam: Full ROM, Normal Inspection - Respiratory Exam Respiratory Exam: Clear to Ausculation Bilateral, NORMAL BREATHING PATTERN - Cardiovascular Exam Cardiovascular Exam: RRR, +S1, +S2 - GI/Abdominal Exam GI & Abdominal Exam: Soft, Normal Bowel Sounds. absent: Tenderness, Mass, Organomegaly - Extremities Exam Extremities Exam: Normal Capillary Refill, Normal Inspection. absent: Joint Swelling - Back Exam Back Exam: absent: CVA tenderness (L), CVA tenderness (R) - Neurological Exam Neurological Exam: Alert, Awake, Oriented x3 - Psychiatric Exam Psychiatric exam: Normal Affect, Normal Mood - Skin Skin Exam: Dry, Normal Color, Warm Assessment and Plan - Assessment and Plan (Free Text) Plan: 66 year old male with a past medical history significant for hypertension, Type 2 DM, GERD, osteoporosis, BPH s/p TURP 2 weeks ago, compression fracture, who presented initially to [facility] ED complaining of acute onsent worsening generalized fatigue and weakness on 03/15/2017. The patient was found in the ED to have a UTI with sepsis, with U/A showing nitrites and leukocyte esterase. The patient recieved Rocephin, then Meropenem due to blood and urine cultures showing ESBL Klebsiella. The patient was also started on Flagyl PO as Stool C. diff antigen came back positive. The patient was subsequently discharged from the hospital and admitted to the TCU. Currently in the TCU, the patient states that he is feeling a little better. He is working with physical therapy and reports feeling stronger. He is continuing to receive IV antibiotics. 1.Sepsis secondary to Urinary tract infection On admission to [facility] on 03/15 patient presented with weakness and some urinary discomfort urine culture : ESBL Klebsiella Changed Abx to IV Meropenem 03/17 , Would need 10 day total of IV antibiotics, 4 more days (last day being 03/26) ID consult : DR Andrea 2. C Diff Antigen + Diarrhea Stool C diff + Ag but neg Toxin with on and off diarrhea so was started on PO Flagyl 3. Hydrocele and inguinal hernia CT abdomen & pelvis: Inguinal hernia urology eval- discussed case with Dr Keyes : no urologic intervention Hernia reducible, not strangulated 4.Hypertension controlled Continue amlodipine 10 mg by mouth daily, Toprol 50 mg by mouth daily 5. Mild anemia , chronic pt had multiple recent surgeries done in [facility] ( TURP and [facility] [place]) Monitor for now 6.Rib-ivskhpn-dqyiqxwij diabetes mellitus Stable Continue Januvia and Metformin Accu-Cheks before meals and at bedtime Sliding scale insulin coverage low Heart healthy moderate carbohydrate diet 7.Osteoporosis with compression fractures Continue calcitonin spray nasal 8.GERD Continue Protonix 9. Hypokalemia likely sec to poor PO intake Replace with KCl 10. Prostatic Enlargement s/p Recent TURP cont Finasteride 11.VTE prophylaxis Lovenox
[2017-03-26] MEDS: Meropenem 500 MG in Sodium Chloride 0.9% 100 ML IVPB SCH ×3 (00:34→17:37)
[2017-03-26] MEDS: Enoxaparin 40 mg Syringe SC SCH (09:24)
[2017-03-26] MEDS: Metoprolol Succinate 50 mg XL Tab PO SCH (09:25)
[2017-03-26] MEDS: Pantoprazole 40 mg EC Tab PO SCH (09:25)
[2017-03-26] MEDS: Calcitonin 200 Int Units/Inh Nasal Spray (3.7 ml) NAS SCH (09:27)
[2017-03-26] MEDS: Lactobacillus Acidophilus 500 MU Cap PO SCH ×2 (09:27→17:37)
[2017-03-27] MEDS: Meropenem 500 MG in Sodium Chloride 0.9% 100 ML IVPB SCH ×2 (00:44→10:44)
[2017-03-27 08:34] VITALS: BP 154/72; PULSE 72; TEMP 97; O2SAT 98
[2017-03-27] MEDS: Lactobacillus Acidophilus 500 MU Cap PO SCH (09:20)
[2017-03-27] MEDS: Enoxaparin 40 mg Syringe SC SCH (09:20)
[2017-03-27] MEDS: Pantoprazole 40 mg EC Tab PO SCH (09:24)
[2017-03-27] MEDS: Metoprolol Succinate 50 mg XL Tab PO SCH (09:25)
[2017-03-27] MEDS: Calcitonin 200 Int Units/Inh Nasal Spray (3.7 ml) NAS SCH (09:28)
[2017-03-27] MEDS ORDERED: Pneumococcal 23-Valent Vaccine IM ONE (10:21)
--- NOTE | 2017-03-27 14:23 | CP.PCM.DIS ---
Provider - Provider Date of Admission: 03/22/17 16:21 Attending physician: Barrett Correa MD Consults: CONCETTA Soares Time Spent in preparation of Discharge (in minutes): 25 Diagnosis - Discharge Diagnosis (1) UTI (urinary tract infection) Status: Resolved Priority: Medium Hospital Course - Lab Results Lab Results: Micro Results 03/24/17 06:00 Urine,Clean Catch Urine Culture - Final No Growth (<1,000 CFU/ML) Most Recent Lab Values WBC 7.6 K/uL (4.8-10.8) 03/24/17 05:50 RBC 4.10 Mil/uL (4.40-5.90) L 03/24/17 05:50 Hgb 11.1 g/dL (12.0-18.0) L 03/24/17 05:50 Hct 33.3 % (35.0-51.0) L 03/24/17 05:50 MCV 81.3 fl (80.0-94.0) 03/24/17 05:50 MCH 27.1 pg (27.0-31.0) 03/24/17 05:50 MCHC 33.4 g/dL (33.0-37.0) 03/24/17 05:50 RDW 17.4 % (11.5-14.5) H 03/24/17 05:50 Plt Count 244 K/uL (130-400) 03/24/17 05:50 MPV 7.5 fl (7.2-11.7) 03/24/17 05:50 Neut % (Auto) 47.6 % (50.0-75.0) L 03/24/17 05:50 Lymph % (Auto) 39.6 % (20.0-40.0) 03/24/17 05:50 Dickenson % (Auto) 9.9 % (0.0-10.0) 03/24/17 05:50 Eos % (Auto) 2.4 % (0.0-4.0) 03/24/17 05:50 Baso % (Auto) 0.5 % (0.0-2.0) 03/24/17 05:50 Neut # 3.6 K/uL (1.8-7.0) 03/24/17 05:50 Lymph # 3.0 K/uL (1.0-4.3) 03/24/17 05:50 Dickenson # 0.8 K/uL (0.0-0.8) 03/24/17 05:50 Eos # 0.2 K/uL (0.0-0.7) 03/24/17 05:50 Baso # 0.0 K/uL (0.0-0.2) 03/24/17 05:50 Sodium 143 mmol/l (132-148) 03/24/17 05:50 Potassium 3.3 MMOL/L (3.6-5.0) L 03/24/17 05:50 Chloride 106 mmol/L (98-107) 03/24/17 05:50 Carbon Dioxide 28 mmol/L (22-30) 03/24/17 05:50 Anion Gap 12 (10-20) 03/24/17 05:50 BUN 15 mg/dl (9-20) 03/24/17 05:50 Creatinine 0.8 mg/dL (0.8-1.5) 03/24/17 05:50 Est GFR ( Amer) > 60 03/24/17 05:50 Est GFR (Non-Af Amer) > 60 03/24/17 05:50 POC Glucose (mg/dL) 236 mg/dL (65-110) H 03/27/17 10:53 Random Glucose 104 mg/dL (75-110) 03/24/17 05:50 Calcium 9.1 mg/dL (8.4-10.2) 03/24/17 05:50 Total Bilirubin 0.2 mg/dl (0.2-1.3) 03/24/17 05:50 AST 26 U/L (17-59) 03/24/17 05:50 ALT 40 U/L (21-72) 03/24/17 05:50 Alkaline Phosphatase 61 U/L (38-126) 03/24/17 05:50 Total Protein 6.1 G/DL (6.3-8.2) L 03/24/17 05:50 Albumin 3.5 g/dL (3.5-5.0) 03/24/17 05:50 Globulin 2.6 gm/dL (2.2-3.9) 03/24/17 05:50 Albumin/Globulin Ratio 1.3 (1.0-2.1) 03/24/17 05:50 - Hospital Course Hospital Course: This is a 66 year old male with a past medical history significant for hypertension, Type 2 DM, GERD, osteoporosis, BPH s/p TURP 2 weeks ago, compression fracture, who presented initially to [facility] ED complaining of acute onsent worsening generalized fatigue and weakness on 03/15/2017. The patient was found in the ED to have a UTI with sepsis, with U/A showing nitrites and leukocyte esterase. The patient recieved Rocephin, then Meropenem due to blood and urine cultures showing ESBL Klebsiella. The patient was also started on Flagyl PO as Stool C. diff antigen came back positive. The patient was subsequently discharged from the hospital and admitted to the TCU on 2016. During his stay in the TCU, he continued to receive Meropenem and Flagyl. He remained hemodynamically stable. His fatigue and weakness improved with physical therapy. As per ID, he has finished his course of antibiotics, for which he received the last dose of Flagyl and Meropenem. Today, he was discharged to home in stable condition. Discharge Exam - Head Exam Head Exam: ATRAUMATIC, NORMOCEPHALIC - Additional Findings Additional findings: Physical exam: Constitutional- cooperative, awake, alert. Head- NCAT, PERRL Eye- PERRL, normal accommodation ENT- normal exam, MMM. Neck- normal inspection, supple, no JVD Respiratory- CTAB, no wheezes rales rhonchi Cardiovascular- RRR, +S1, +S2 no MRG GI/Abdominal- normal bowel sounds, soft, no mass, no hsm Skin- warm, dry Extremities Exam- normal capillary refill, normal inspection Neurological Exam- alert, stable gait Psych- normal mood, normal affect Discharge Plan - Follow Up Plan Condition: GOOD Disposition: HOME/ ROUTINE Instructions: Urinary Tract Infection in Men (DC), Dysuria (GEN), Sepsis (DC), Sepsis (GEN), Urinary Tract Infection in Women (DC) Additional Instructions: Follow up with PMD of his choice in one week. Clinical Quality Measures - Date & Time of Discharge Summary Date of Discharge Summary: 03/27/17 Time of Discharge Summary: 14:00
== END 2017-03-27 12:00 | disposition home health service (06) | DRG 872 ==
LOC: H.TCU 03-22 16:21
PROVIDERS: ADMIT Hospitalist; ATTEND Hospitalist
PROC: 3E03329 Introduction of Other Anti-infective into Peripheral Vein, Percutaneous Approach (ICD-10-PCS; principal; 2017-03-22)
PROC: F08Z4FZ Home Management Treatment using Assistive, Adaptive, Supportive or Protective Equipment (ICD-10-PCS; 2017-03-22)
DX: A41.9 Sepsis, unspecified organism (principal); A04.72 Enterocolitis due to Clostridium difficile, not specified as recurrent; I10 Essential (primary) hypertension; N39.0 Urinary tract infection, site not specified; E11.9 Type 2 diabetes mellitus without complications; K21.9 Gastro-esophageal reflux disease without esophagitis; N40.0 Benign prostatic hyperplasia without lower urinary tract symptoms; M81.0 Age-related osteoporosis without current pathological fracture; Z90.49 Acquired absence of other specified parts of digestive tract; E87.6 Hypokalemia